=== PATIENT | female | born 1955 | race Caucasian/White ===

== ENCOUNTER → 2019-04-27 | Outpatient (CLI) | payer OTHER ==
--- NOTE | 2019-04-27 10:34 | XR ---
EXAMINATION TYPE: XR cervical spine limited DATE OF EXAM: 04/27/2019 COMPARISON: NONE HISTORY: Pain TECHNIQUE: Four views are submitted. FINDINGS: The odontoid is intact. There are no compression deformities. The prevertebral soft tissue structur es are within normal limits. Severe degenerative disc disease C4-5 and C5-C6 with moderate changes C 3-4 and C6-C7. Posterior spondylosis at levels C4-C7. Loss the normal cervical lordosis. IMPRESSION: 1. Multilevel severe degenerative disc disease. Recommend follow-up MRI. Suspect posterior spondylosi s with foraminal encroachment and possible canal stenosis.
== END | disposition home or self-care (01) ==
LOC: RADXRMAIN 10:05
PROVIDERS: ATTEND Family Medicine
DX: M50.31 Other cervical disc degeneration, high cervical region (principal)
CPT/HCPCS: 72040

== ENCOUNTER → 2019-05-31 | Outpatient (CLI) | payer OTHER ==
--- NOTE | 2019-06-01 03:19 | MR ---
EXAMINATION TYPE: MR cervical spine wo/w con DATE OF EXAM: 05/31/2019 COMPARISON: None HISTORY: Radiculopathy, cervical region TECHNIQUE: Multiplanar, multisequence images of the cervical spine were acquired utilizing 8.5 mL intravenous Ga davist gadolinium contrast. Diffusion weighted imaging was performed. There is mild straightening of the cervical spine. There is degenerative disc space narrowing at C4-5 C5-6. There is spurring of the endplates. There is a moderate-sized posterior C5-6 cervical disc her niation into the spinal canal. The spinal canal is narrowed to 5 mm. There is some effacement of the cervical spinal cord and flattening. This is best seen on T2 axial image 21. There is uncovertebral s purring and neural foraminal impingement on the left side at C5-6. There is no significant edema seen in the cervical spinal cord on the T2 images. There is no compression fracture. Brainstem is intact. There is some mild left side effacement of the cervical spinal cord at C4-5 due to spur formation an d disc bulging. Posterior elements are intact. I see no focal bone destruction. There is no pathologic enhancement. IMPRESSION: There is posterior central C5-6 cervical disc herniation with 5 mm spinal stenosis and deformity of t he cervical spinal cord. There is similar less severe changes at C4-5 on the left side. No fracture. Left side C4-5 C5-6 neural foraminal impingement.
== END | disposition home or self-care (01) ==
LOC: RADMRIMAIN 13:33
PROVIDERS: ATTEND Family Medicine
DX: M48.02 Spinal stenosis, cervical region (principal); M50.122 Cervical disc disorder at C5-C6 level with radiculopathy; M43.8X2 Other specified deforming dorsopathies, cervical region
CPT/HCPCS: 72156; A9585

== ENCOUNTER 2019-08-21 14:31 | Emergency (ER) | payer OTHER, MEDICARE ==
[2019-08-21] MEDS ORDERED: ONDANSETRON 4 MG/2 ML VIAL IVP STA (15:07)
[2019-08-21] MEDS ORDERED: SODIUM CHLORIDE 0.9% 1,000 ML IV STA (15:07)
[2019-08-21] MEDS ORDERED: PANTOPRAZOLE 40 MG/10 ML VIAL IVP STA (15:07)
[2019-08-21] MEDS ORDERED: DICYCLOMINE 10 MG/ML 2 ML AMP IM STA (15:07)
--- NOTE | 2019-08-21 15:11 | ED ---
Abdominal Pain HPI - General Chief Complaint: Abdominal Pain Stated Complaint: Abd pain Time Seen by Provider: 08/21/19 14:53 Source: patient Mode of arrival: ambulatory Limitations: no limitations - History of Present Illness Initial Comments: Patient is 64-year-old female with history of intestinal obstruction is presenting to emergency Department with a chief complaint of abdominal pain. Patient reports her symptoms began 3 days ago with diarrhea which has resolved since. Patient reports intermittent nausea but no vomiting. Patient reports she has not had a bowel movement since . Patient reports abdominal pain is mostly located in the umbilical region and radiates to each abdominal quadrant. Patient reports abdominal surgery 9 years ago for removal of a section of the small intestine, she also had cholecystectomy. Patient reports decreased appetite over the last 3 days, as report chills and night sweats but denies a fever. Patient denies taking medication to alleviate the symptoms. Patient denies any chest pain back pain shortness of breath headaches or blurry vision. Patient denies any urinary symptoms, vaginal discharge or bleeding. Patient denies hematuria, hematochezia or melena. - Related Data Previous Rx's Medication Instructions Recorded Magnesium Hydroxide [Milk of 400 mg PO ONCE PRN #1 bottle 08/21/19 Magnesia] Ondansetron Odt [Zofran Odt] 4 mg PO Q8HR PRN #10 tab 08/21/19 Allergies Allergy/AdvReac Type Severity Reaction Status Date / Time Sulfa (Sulfonamide Allergy Rash/Hives Verified 08/21/19 14:50 Antibiotics) Review of Systems ROS Statement: Those systems with pertinent positive or pertinent negative responses have been documented in the HPI. ROS Other: All systems not noted in ROS Statement are negative. Past Medical History Past Medical History: Hyperlipidemia, Thyroid Disorder History of Any Multi-Drug Resistant Organisms: None Reported Past Surgical History: Hysterectomy, Orthopedic Surgery Additional Past Surgical History / Comment(s): Parts of colon removed Past Psychological History: No Psychological Hx Reported Smoking Status: Former smoker Past Alcohol Use History: None Reported Past Drug Use History: None Reported General Exam Limitations: no limitations General appearance: alert, in no apparent distress Head exam: Present: atraumatic, normocephalic, normal inspection Eye exam: Present: normal appearance, PERRL, EOMI Pupils: Present: normal accommodation ENT exam: Present: normal exam, mucous membranes moist, normal external ear exam Neck exam: Present: normal inspection, full ROM Respiratory exam: Present: normal lung sounds bilaterally Cardiovascular Exam: Present: regular rate, normal rhythm, normal heart sounds GI/Abdominal exam: Present: soft, tenderness (Umbilical tenderness. Positive McBurney point tenderness negative Rovsing, negative Kernig, negative psoas), normal bowel sounds. Absent: distended, guarding, rebound, rigid, organomegaly, mass, bruit, pulsatile mass, hernia Extremities exam: Present: normal inspection, full ROM Back exam: Present: normal inspection, full ROM Neurological exam: Present: alert, oriented X3 Psychiatric exam: Present: normal affect, normal mood Skin exam: Present: warm, intact, normal color Course Vital Signs 08/21/19 08/21/19 08/21/19 14:48 15:41 16:14 Temperature 98.4 F 97.8 F Pulse Rate 92 68 Respiratory 16 18 18 Rate Blood Pressure 127/85 121/83 O2 Sat by Pulse 95 94 L Oximetry 08/21/19 18:35 Temperature Pulse Rate Respiratory 20 Rate Blood Pressure 107/80 O2 Sat by Pulse Oximetry Medical Decision Making - Medical Decision Making is 64-year-old female presenting to emergency Department with a chief complaint of abdominal pain. The pain appears to have an onset after the patient had diarrhea and no bowel movement since which occurred about 3 days ago. CBC and CMP are unremarkable. UA is indicative of mild elevation of white blood cells with some bacteria. Patient is not symptomatically for a UTI so she is not going to be treated. KUB is unremarkable. Patient was given fluids Bentyl Toradol and Zofran. CT of abdomen and pelvis performed is indicative of no acute pathologies. On reevaluation patient reports improvement in her symptoms. Patient advised to follow-up with a GI specialist. Patient discharged with Zofran. Advised the patient to take a stool softener and milk of magnesia to promote bowel movements. Strict return parameters were thoroughly discussed with patient was understanding and agreeable. Case discussed physician. - Lab Data Result diagrams: 08/21/19 15:15 08/21/19 15:15 Lab Results 08/21/19 08/21/19 08/21/19 Range/Units 15:15 15:15 16:01 WBC 7.8 (3.8-10.6) k/uL RBC 4.31 (3.80-5.40) m/uL Hgb 13.2 (11.4-16.0) gm/dL Hct 38.3 (34.0-46.0) % MCV 88.8 (80.0-100.0) fL MCH 30.6 (25.0-35.0) pg MCHC 34.5 (31.0-37.0) g/dL RDW 13.3 (11.5-15.5) % Plt Count 311 (150-450) k/uL Neutrophils % 70 % Lymphocytes % 20 % Monocytes % 5 % Eosinophils % 2 % Basophils % 1 % Neutrophils # 5.5 (1.3-7.7) k/uL Lymphocytes # 1.6 (1.0-4.8) k/uL Monocytes # 0.4 (0-1.0) k/uL Eosinophils # 0.1 (0-0.7) k/uL Basophils # 0.1 (0-0.2) k/uL Sodium 140 (137-145) mmol/L Potassium 4.0 (3.5-5.1) mmol/L Chloride 105 (98-107) mmol/L Carbon Dioxide 26 (22-30) mmol/L Anion Gap 9 mmol/L BUN 21 H (7-17) mg/dL Creatinine 0.77 (0.52-1.04) mg/dL Est GFR (CKD-EPI)AfAm >90 (>60 ml/min/1.73 sqM) Est GFR (CKD-EPI)NonAf 82 (>60 ml/min/1.73 sqM) Glucose 101 H (74-99) mg/dL Calcium 9.0 (8.4-10.2) mg/dL Total Bilirubin 0.4 (0.2-1.3) mg/dL AST 22 (14-36) U/L ALT 16 (9-52) U/L Alkaline Phosphatase 68 (38-126) U/L Total Protein 7.3 (6.3-8.2) g/dL Albumin 4.2 (3.5-5.0) g/dL Amylase 49 (30-110) U/L Lipase 128 (23-300) U/L Urine Color Yellow Urine Appearance Clear (Clear) Urine pH 5.5 (5.0-8.0) Ur Specific Mellette 1.021 (1.001-1.035) Urine Protein Negative (Negative) Urine Glucose (UA) Negative (Negative) Urine Ketones Negative (Negative) Urine Blood Negative (Negative) Urine Nitrite Negative (Negative) Urine Bilirubin Negative (Negative) Urine Urobilinogen 2.0 (<2.0) mg/dL Ur Leukocyte Esterase Large H (Negative) Urine RBC 3 (0-5) /hpf Urine WBC 25 H (0-5) /hpf Ur Squamous Epith Cells 1 (0-4) /hpf Urine Bacteria Rare H (None) /hpf Urine Mucus Occasional H (None) /hpf Disposition Clinical Impression: Nausea, Constipation, Abdominal pain Disposition: HOME SELF-CARE Condition: Stable Instructions (If sedation given, give patient instructions): Abdominal Pain (ED) Additional Instructions: Please follow up with a GI specialist. Please take prescribed medication as directed. Please return to emergency department if symptoms worsen. Prescriptions: Magnesium Hydroxide [Milk of Magnesia] 400 mg PO ONCE PRN #1 bottle PRN Reason: Constipation Ondansetron Odt [Zofran Odt] 4 mg PO Q8HR PRN #10 tab PRN Reason: Nausea Is patient prescribed a controlled substance at d/c from ED?: No Referrals: Sai Garvey MD [Primary Care Provider] - 1-2 days Richard Brown MD [STAFF PHYSICIAN] - 1-2 days Time of Disposition: 18:03
[2019-08-21 15:26] LABS: Basophils # (A) 0.1 k/uL (0-0.2); Basophils % (A) 1 %; Eosinophils # (A) 0.1 k/uL (0-0.7); Eosinophils % (A) 2 %; HCT 38.3 % (34.0-46.0); HGB 13.2 gm/dL (11.4-16.0); Lymphocytes # (A) 1.6 k/uL (1.0-4.8); Lymphocytes % (A) 20 %; MCH 30.6 pg (25.0-35.0); MCHC 34.5 g/dL (31.0-37.0); MCV 88.8 fL (80.0-100.0); Mean Platelet Volume 6.7; Monocytes # (A) 0.4 k/uL (0-1.0); Monocytes % (A) 5 %; Neutrophils # (A) 5.5 k/uL (1.3-7.7); Neutrophils % (A) 70 %; Platelet Count 311 k/uL (150-450); RBC 4.31 m/uL (3.80-5.40); RDW 13.3 % (11.5-15.5); WBC 7.8 k/uL (3.8-10.6)
[2019-08-21 15:34] LABS: ALT 16 U/L (9-52); AST 22 U/L (14-36); African American GFR (CKD) >90 (>60 ml/min/1.73 sqM); Albumin 4.2 g/dL (3.5-5.0); Alkaline Phosphatase 68 U/L (38-126); Amylase 49 U/L (30-110); Anion Gap 9 mmol/L; Blood Urea Nitrogen 21 mg/dL (7-17); Carbon Dioxide 26 mmol/L (22-30); Chloride 105 mmol/L (98-107); Glucose 101 mg/dL (74-99); Sodium 140 mmol/L (137-145); Total Bilirubin 0.4 mg/dL (0.2-1.3); Total Protein 7.3 g/dL (6.3-8.2)
[2019-08-21 15:45] VITALS: PULSE 68; TEMP 97.8
--- NOTE | 2019-08-21 16:03 | XR ---
EXAMINATION TYPE: XR KUB DATE OF EXAM: 08/21/2019 COMPARISON: NONE HISTORY: Abdominal pain TECHNIQUE: 2 views upright FINDINGS: There is no sign of intestinal obstruction or pneumoperitoneum. Fecal pattern is normal. Th ere are clips from cholecystectomy. There is mild pleural reaction at the lung bases more on the left side. IMPRESSION: Mild basilar pleural reaction. Nonacute abdomen.
[2019-08-21 16:23] LABS: Appearance,Urine Clear (Clear); Bacteria,Urine Rare /hpf; Bilirubin,Urine Negative (Negative); Blood,Urine Negative (Negative); Color,Urine Yellow; Glucose,Urine (UA) Negative (Negative); Ketones,Urine Negative (Negative); Leukocyte Esterase,Urine Large (Negative); Mucus,Urine Occasional /hpf; Nitrite,Urine Negative (Negative); PH, Urine 5.5 (5.0-8.0); Protein,Urine Negative (Negative); RBC,Urine 3 /hpf (0-5); Specific Gravity,Urine 1.021 (1.001-1.035); Squamous Epithelial Cell,Urine 1 /hpf (0-4); WBC,Urine 25 /hpf (0-5)
--- NOTE | 2019-08-21 17:13 | CT ---
EXAMINATION TYPE: CT abdomen pelvis w con DATE OF EXAM: 08/21/2019 COMPARISON: None HISTORY: Abdominal pain x3 days. CT DLP: 1389.1 mGycm Automated exposure control for dose reduction was used. TECHNIQUE: Helical acquisition of images was performed from the lung bases through the pelvis. CONTRAST: Performed without Oral Contrast and with IV Contrast, patient injected with 100ml mL of Isovue 300. FINDINGS: There is mild subsegmental atelectasis at the lung bases. Heart size is normal. There is no pericardi al effusion. There is no pleural fluid. There clips from cholecystectomy. Liver spleen pancreas appear normal. Bile ducts are not dilated. St omach is intact. There is no adrenal mass. Kidneys show satisfactory contrast opacification. There is no hydronephrosi s. There is surgery with anastomosis apparently in the anterior mid small bowel. There is no retroperitoneal adenopathy. Ureters are not dilated. Bladder distends smoothly. There are small renal cortical cysts less than 1 cm. There is no inguinal hernia. There is no free fluid in th e pelvis. Appendix is posterior and appears normal. Lumbar vertebra have normal alignment. Disc spaces are fairly normal. Posterior elements are intact. Bony pelvis appears intact. IMPRESSION: PREVIOUS BOWEL SURGERY. NO SIGN OF ACUTE ABDOMEN AND PELVIS. MILD SUBSEGMENTAL ATELECTASIS AT THE DAVE G BASES. NORMAL APPENDIX.
[2019-08-21] MEDS ORDERED: Acetaminophen-Codeine 300-30mg TAB PO STA (17:26)
[2019-08-21] MEDS ORDERED: ACET/COD 300 MG/30 MG STARTER PACK 6 TAB BTL PO STA (18:30)
[2019-08-21 18:36] VITALS: BP 107/80; RESP 20
== END 2019-08-21 19:08 | disposition home or self-care (01) ==
LOC: EC 14:31
DX: K59.00 Constipation, unspecified (principal); R11.0 Nausea; R82.71 Bacteriuria; R82.998 Other abnormal findings in urine; R68.83 Chills (without fever); R61 Generalized hyperhidrosis; Z87.891 Personal history of nicotine dependence; Z88.2 Allergy status to sulfonamides; Z90.49 Acquired absence of other specified parts of digestive tract
CPT/HCPCS: 36415; 80053; 82150; 83690; 85025; 81001; 74018; 74177; 99284; 96374; 96375; 96361; 96372; J0500; J2405; C9113; Q9967

== ENCOUNTER 2020-01-02 15:05 | Observation (INO) | payer MEDICARE, OTHER ==
[2020-01-02] MEDS ORDERED: HYDROcodone/APAP 5-325MG 1 EACH TAB PO PRN (17:55)
[2020-01-02] MEDS: HYDROcodone/APAP 5-325MG 1 EACH TAB PO PRN ×2 (18:21→22:41)
[2020-01-02] MEDS: SODIUM CHLORIDE 0.9% 1,000 ML IV SCH (19:01)
[2020-01-02 19:28] LABS: Basophils % (A) 0 %; Eosinophils % (A) 0 %; HGB 12.3 gm/dL (11.4-16.0); Lymphocytes # (A) 0.8 k/uL (1.0-4.8); Lymphocytes % (A) 11 %; MCH 30.4 pg (25.0-35.0); MCHC 33.3 g/dL (31.0-37.0); MCV 91.2 fL (80.0-100.0); Mean Platelet Volume 8.1; Monocytes # (A) 0.3 k/uL (0-1.0); Monocytes % (A) 4 %; Neutrophils # (A) 6.5 k/uL (1.3-7.7); Neutrophils % (A) 84 %; Platelet Count 267 k/uL (150-450); RBC 4.06 m/uL (3.80-5.40); RDW 13.5 % (11.5-15.5); WBC 7.7 k/uL (3.8-10.6)
[2020-01-02 19:38] LABS: African American GFR (CKD) >90 (>60 ml/min/1.73 sqM); Anion Gap 5 mmol/L; Blood Urea Nitrogen 13 mg/dL (7-17); Calcium 8.7 mg/dL (8.4-10.2); Carbon Dioxide 28 mmol/L (22-30); Chloride 106 mmol/L (98-107); Glucose 128 mg/dL (74-99); Non-African American GFR(CKD) >90 (>60 ml/min/1.73 sqM); Potassium 4.2 mmol/L (3.5-5.1); Sodium 139 mmol/L (137-145)
[2020-01-02 20:34] LABS: Glucose,Whole Blood 109 mg/dL (75-99)
[2020-01-02] MEDS: INSULIN ASPART (NovoLOG) 100 UNIT/ML VIAL SQ SCH (20:37)
--- NOTE | 2020-01-02 22:31 | MR ---
EXAMINATION TYPE: MR shoulder RT wo/w con DATE OF EXAM: 01/02/2020 COMPARISON: None HISTORY: Severe rt shouler/arm pain CONTRAST: Standard multiplanar, multisequence MRI departmental protocol utilizing 7.5 mL intravenous Gadavist g adolinium contrast. Subscapularis tendon is intact. Biceps tendon is intact. The glenoid saira appear intact. There is so me spurring at the AC joint and mild subacromial impingement on the supraspinatus tendon. The suprasp inatus tendon appears intact. I see no bony destructive process. The glenohumeral joint appears intac t. IMPRESSION: No evidence of rotator cuff tear. No fracture. No evidence of ligamentous tear. Hypertrophic spurring at the AC joint with mild subacromial impingement.
[2020-01-02] MEDS: SERTRALINE 100 MG TAB PO SCH (22:41)
[2020-01-02] MEDS: ZOLPIDEM 10 MG TAB PO PRN (22:43)
--- NOTE | 2020-01-02 23:14 | MR ---
EXAMINATION TYPE: MR cervical spine wo/w con DATE OF EXAM: 01/02/2020 COMPARISON: 05/31/2019 HISTORY: Neck pain, rt shoulder pain CONTRAST: Standard multiplanar, multisequence MRI departmental protocol utilizing 7.5 mL intravenous Gadavist g adolinium contrast. There is mild straightening of the cervical spine. There is disc space narrowing throughout the cervi chris spine and more severe at C4-5 C5-6. There are posterior disc herniations at C4-5 C5-6 with endpla te spur formation. Spinal canal is narrowed to 5 mm at C5-6. Spinal canal is 6 mm at C4-5. There is s light flattening of the cervical spinal cord at C5-6. There is impingement on the anterior surface on the left side at C5-6. There is similar change less severe at C4-5. Cervical spinal cord shows no edema. The brainstem is intact. There is no compression fracture. IMPRESSION: Spondylotic changes at C4-5 and C5-6. Posterior disc herniations larger at C5-6 with spinal stenosis as above. Disc herniation at C5-6 is increased slightly compared to old exam.
[2020-01-02] MEDS: methylPREDNISolone SOD SUCCI 125 MG/2 ML VIAL IV SCH (23:30)
[2020-01-03] MEDS: HYDROcodone/APAP 5-325MG 1 EACH TAB PO PRN ×5 (03:21→22:06)
[2020-01-03] MEDS: LEVOTHYROXINE 100 MCG TAB PO SCH (05:28)
[2020-01-03 07:19] LABS: Glucose,Whole Blood 145 mg/dL (75-99)
[2020-01-03] MEDS: INSULIN ASPART (NovoLOG) 100 UNIT/ML VIAL SQ SCH ×4 (08:35→22:07)
[2020-01-03] MEDS: methylPREDNISolone SOD SUCCI 125 MG/2 ML VIAL IV SCH ×3 (08:35→23:27)
[2020-01-03] MEDS: SODIUM CHLORIDE 0.9% 1,000 ML IV SCH ×2 (10:00→22:05)
[2020-01-03 11:46] LABS: Glucose,Whole Blood 121 mg/dL (75-99)
[2020-01-03 13:02] LABS: Glucose,Whole Blood 119 mg/dL (75-99)
[2020-01-03] MEDS ORDERED: CYCLOBENZAPRINE 5 MG TAB PO PRN (14:21)
[2020-01-03] MEDS: DIAZEPAM 5 MG TAB PO PRN (17:02)
[2020-01-03 17:55] LABS: Glucose,Whole Blood 152 mg/dL (75-99)
[2020-01-03 20:33] LABS: Glucose,Whole Blood 170 mg/dL (75-99)
[2020-01-03 22:06] LABS: Glucose,Whole Blood 136 mg/dL (75-99)
[2020-01-03] MEDS: SERTRALINE 100 MG TAB PO SCH (22:07)
--- NOTE | 2020-01-03 22:45 | HP ---
HISTORY AND PHYSICAL This is a 64-year-old white female admitted with intractable pain syndrome with a right palsy of the arm, unable to move her arm. She was admitted with IV steroids and MRI of the shoulder and cervical spine were done with consultation for possible cervical epidural and with Dr. Salcedo for possible neck surgery. As mentioned, she has right arm palsy, intractable pain. HOME MEDICATION: Please see orders. Fourteen-point review of systems negative except for mentioned in HPI. Vital signs are stable. Afebrile. CARDIOVASCULAR: S1, S2. LUNGS: Clear. GI: Soft. HEMATOLOGY: Negative Homans. PSYCH: Fair mood and affect. NEUROLOGIC: Alert and oriented x3. MUSCULOSKELETAL: Palpation of cervicothoracic muscles with pain with right arm palsy in a sling. ASSESSMENT: 1. Acute cervical palsy. 2. Cervical neuritis. 3. Possible AC impingement. Continue the next 24 to 48 hours for possible cervical epidural. Set up for outpatient physical therapy and Dr. Salcedo consult prior to discharge. Continue with IV steroids. MMODL / IJN: [id number] /
[2020-01-03] MEDS: ZOLPIDEM 10 MG TAB PO PRN (23:05)
[2020-01-04] MEDS: DIAZEPAM 5 MG TAB PO PRN ×3 (01:08→17:24)
[2020-01-04 06:35] LABS: Glucose,Whole Blood 145 mg/dL (75-99)
[2020-01-04] MEDS: LEVOTHYROXINE 100 MCG TAB PO SCH (06:47)
[2020-01-04] MEDS: INSULIN ASPART (NovoLOG) 100 UNIT/ML VIAL SQ SCH ×4 (06:47→20:00)
[2020-01-04] MEDS: HYDROcodone/APAP 5-325MG 1 EACH TAB PO PRN ×4 (06:51→20:03)
[2020-01-04] MEDS: methylPREDNISolone SOD SUCCI 125 MG/2 ML VIAL IV SCH ×2 (09:00→17:24)
--- NOTE | 2020-01-04 11:24 | P.CNOR ---
<Hakeem Gill - Last Filed: 01/04/20 11:17> History of Present Illness - [facility] Consult date: 01/04/20 Requesting physician: Sai Garvey Consult reason: other (Right upper extremity radiculopathy and weakness) History of present illness: Patient is a pleasant 64-year-old female who is seen and examined at bedside for further evaluation regards to significant right upper extremity radiculopathy and weakness. Patient states her symptoms initially started in September 2019 with some numbness and tingling and pain into her right thumb, index finger, and middle finger. He was told she had carpal tunnel. She followed with Dr. Collin Godwin and underwent right carpal tunnel release. She states her symptoms have had significant improvement since that time. She is now experiencing new or symptoms that have been exacerbated since the previous 12/26/2019. She states she has pain that radiates over the right shoulder. She has significant pain with range of motion of the shoulder but also significant weakness with her right shoulder. She has numbness and tingling that radiates down the arm and now towards the right pinky and ring fingers. She has significant weakness overall in regards to her right upper extremity. She denies any specific injuries. She denies any left upper extremity radiculopathy or weakness. Consultation has been placed with pain management. She has not been examined by pain management yet this morning. She has been following with her primary care provider Dr. Sai Garvey who sent her to the hospital for admission and further imaging. MRI imaging of the cervical spine and right shoulder were performed prior to today's consultation. Imaging did show s ignificant changes at her cervical spine. Imaging did show some acromioclavicular changes at her right shoulder. Patient is currently on Solu- Medrol 60 mg IV every 8 hours. Patient's medical history includes hyperlipidemia and thyroid disorder. Past Medical History Past Medical History: Hyperlipidemia, Thyroid Disorder History of Any Multi-Drug Resistant Organisms: None Reported Past Surgical History: Hysterectomy, Orthopedic Surgery Additional Past Surgical History / Comment(s): Parts of colon removed Past Anesthesia/Blood Transfusion Reactions: No Reported Reaction Past Psychological History: No Psychological Hx Reported Smoking Status: Former smoker Past Alcohol Use History: None Reported Past Drug Use History: None Reported - Past Family History Mother Additional Family Medical History / Comment(s): still living in good health Medications and Allergies Home Medications Medication Instructions Recorded Confirmed Type Ondansetron Odt [Zofran Odt] 4 mg PO Q8HR PRN #10 tab 08/21/19 01/02/20 Rx Diazepam [Valium] 5 mg PO Q8H PRN 01/02/20 01/02/20 History Gabapentin [Neurontin] 100 mg PO BID 01/02/20 01/02/20 History Ibuprofen [Motrin] 600 mg PO BID PRN 01/02/20 01/02/20 History Levothyroxine Sodium [Synthroid] 100 mcg PO DAILY 01/02/20 01/02/20 History Naproxen 500 mg PO BID 01/02/20 01/02/20 History Pantoprazole Sodium [Protonix] 40 mg PO DAILY PRN 01/02/20 01/02/20 History Sertraline [Zoloft] 100 mg PO HS 01/02/20 01/02/20 History Zolpidem [Ambien] 10 mg PO HS 01/02/20 01/02/20 History methylPREDNISolone [Medrol] 8 mg PO DAILY 01/02/20 01/02/20 History Allergies Allergy/AdvReac Type Severity Reaction Status Date / Time Sulfa (Sulfonamide Allergy Rash/Hives Verified 01/02/20 18:35 Antibiotics) Physical Examination Physical exam: Patient is awake, alert, and oriented 3 Vital signs stable Good chest excursion with deep inspiration and expiration Examination of the cervical spine reveals skin is intact with no abrasions, lacerations, or bruises; no erythema, purulence or signs of infection Full range of motion of the cervical spine with adequate flexion, extension, and bilateral rotation [employer] strength, thumb strength, interosseous strength, biceps strength, triceps strength, and shoulder strength positive sustained on the left Significant weakness throughout range of motion of the right upper extremity Patient is unable to perform full abduction of the right shoulder Pain with active range of motion of the right shoulder Motor strength in the right upper extremity is 3/5 including thumb extension, interossi, and hemodialysis rn Motor strength of the right upper extremity is 4/5 including the triceps Motor strength the right upper extremity is 4-/5 with breakaway strength including biceps Evidence of a well-healed incision at the right wrist following previous carpal tunnel release No upper extremity hyperreflexia bilaterally Positive Leeanna's sign left upper extremity Results Pertinent studies: MRI of the cervical spine taken on 01/02/2020: C4-5 degenerative disc disease and disc herniation resulting in central canal stenosis and left neural foraminal stenosis; C5-6 degenerative disc disease and large disc herniation resulting in central canal stenosis and left neural foraminal stenosis; C6-7 disc bulging with cord flattening MRI of the right shoulder taken on 01/02/2020: No evidence of rotator cuff tear; no fracture; no evidence of ligamentous tear; evidence of hypertrophic spurring at the acromioclavicular joint with mild subacromial impingement; biceps tendon is intact; no evidence of destructive process - Labs Labs: Abnormal Lab Results - Last 24 Hours (Table) 01/03/20 01/03/20 01/03/20 Range/Units 11:37 12:53 17:53 POC Glucose (mg/dL) 121 H 119 H 152 H (75-99) mg/dL 01/03/20 01/03/20 01/04/20 Range/Units 20:25 22:04 06:33 POC Glucose (mg/dL) 170 H 136 H 145 H (75-99) mg/dL H & H 01/02/20 Range/Units 19:04 Hgb 12.3 (11.4-16.0) gm/dL Hct 37.0 (34.0-46.0) % Result Diagrams: 01/02/20 19:04 01/02/20 19:04 Assessment and Plan Assessment: Assessment: Acute right upper extremity weakness Acute right upper extremity radiculopathy C4-5 herniated nucleus pulposus and degenerative disc disease resulting in central canal stenosis and left neural foraminal stenosis C5-6 herniated nucleus pulposus and degenerative disc disease resulting in central canal stenosis with cord compression and left neural foraminal stenosis Right acromioclavicular hypertrophic spurring History of right recent carpal tunnel release (1) Right arm weakness Current Visit: Yes Status: Acute Code(s): R29.898 - OTH SYMPTOMS AND SIGNS INVOLVING THE MUSCULOSKELETAL SYSTEM SNOMED Code(s): 032556241 (2) Radiculopathy affecting upper extremity Current Visit: Yes Status: Acute Code(s): M54.10 - RADICULOPATHY, SITE UNSPECIFIED SNOMED Code(s): 08425803 (3) Cervical stenosis of spinal canal Current Visit: Yes Status: Acute Code(s): M48.02 - SPINAL STENOSIS, CERVICAL REGION SNOMED Code(s): 73305629 (4) Herniated nucleus pulposus, cervical Current Visit: Yes Status: Acute Code(s): M50.20 - OTHER CERVICAL DISC DISPLACEMENT, UNSP CERVICAL REGION SNOMED Code(s): 40475656 (5) Acromioclavicular joint arthritis Current Visit: Yes Status: Acute Code(s): M19.019 - PRIMARY OSTEOARTHRITIS, UNSPECIFIED SHOULDER SNOMED Code(s): 188553629 (6) History of carpal tunnel release Current Visit: Yes Status: Acute Code(s): Z98.890 - OTHER SPECIFIED POSTPROCEDURAL STATES SNOMED Code(s): 838910786 (7) Right shoulder pain Current Visit: Yes Status: Acute Code(s): M25.511 - PAIN IN RIGHT SHOULDER SNOMED Code(s): 54563080 (8) Hyperlipidemia Current Visit: Yes Status: Acute Code(s): E78.5 - HYPERLIPIDEMIA, UNSPECIFIED SNOMED Code(s): 64510579 (9) Thyroid disorder Current Visit: Yes Status: Acute Code(s): E07.9 - DISORDER OF THYROID, UNSPECIFIED SNOMED Code(s): 79762663 Plan: Plan: 1. Patient has been seen by Dr. Pepito Salcedo and myself. After reviewing of imaging, physical examination the patient, and further discussion with the patient, we will currently plan to continue with conservative treatment. Patient has consultation placed with pain management. We discussed we will plan to have pain management consult with the patient and discuss further treatment options including the possibility of injections. We discussed if the patient is able to be stable with her pain controlled, she be cleared for discharge home from an orthopedic spine standpoint. We did discuss her significant findings on MRI imaging as well as her significant weakness in right upper extremity radiculopathy. We discussed if her symptoms are not well-controlled and do not improve with conservative treatment, she is a candidate for surgical intervention. At this time, patient would like to try to work through conservative treatment options and have further evaluation in the outpatient setting. Due to the recent alexis virus outbreak, patient like to avoid long- term admittance to the hospital. We discussed we'll plan to have her follow-up in the outpatient setting in approximately 2 weeks for further evaluation. Following discharge, patient may follow-up with Hakeem Gill PA-C or Dr. Pepito Salcedo at [facility] 2. Patient should avoid excessive activities and heavy lifting with the right upper extremity. 3. Continue pain control medications as prescribed; continue with Solu-Medrol as prescribed as needed for pain control Time with Patient: Greater than 30 (Including obtaining history, physical examination, reviewing of imaging, and dictation.) <Emilie Salcedo - Last Filed: 01/04/20 11:47> Physical Examination Osteopathic Statement: *. No significant issues noted on an osteopathic structural exam other than those noted in the History and Physical/Consult. Results - Labs Labs: Abnormal Lab Results - Last 24 Hours (Table) 01/03/20 01/03/20 01/03/20 Range/Units 11:37 12:53 17:53 POC Glucose (mg/dL) 121 H 119 H 152 H (75-99) mg/dL 01/03/20 01/03/20 01/04/20 Range/Units 20:25 22:04 06:33 POC Glucose (mg/dL) 170 H 136 H 145 H (75-99) mg/dL H & H 01/02/20 Range/Units 19:04 Hgb 12.3 (11.4-16.0) gm/dL Hct 37.0 (34.0-46.0) % Result Diagrams: 01/02/20 19:04 01/02/20 19:04 Assessment and Plan Plan: The patient is seen and examined today at bedside. I also reviewed her MRI of her cervical spine. I reviewed the dictation above and I am in agreement with the dictation above. Patient is using her arm somewhat better today. She thinks that the steroid may have helped somewhat in terms of her motion. She still has pain at her right upper extremity toward her shoulder and down her right arm with some weakness globally at her right arm. Portion of her weakness is due to pain and breakaway strength however there does seem to be some strength loss as well. She is not hyperreflexic. She has negative Leeanna's. She does not have specific upper motor neuron signs at this point. At this time I think is still located continue to try conservative treatment with medication. Currently pain management service is limiting there procedures and they plan on performing epidural injections during this hospitalization for this patient. This may be an option for her on an outpatient basis. I would like to see how she does with continued oral steroid after the IV steroid continues for 1 more night. I like to see if she has any improvement with Neurontin and we will order that for her. She does have significant disc herniation with evidence of stenosis which corre lates with her neck and upper extremity symptoms. She is a candidate for surgical intervention in the form of anterior cervical decompression with discectomy and fusion. Certainly we would like to see if she has some improvement with conservative treatment before entertaining surgical intervention and I discussed this with her at length. I think it is okay for her to be discharged home from a orthopedic spine standpoint and to continue her follow-up on an outpatient basis when she is stable with oral medications. She thinks she may be able to be home tomorrow with oral steroid if she continues to improve and she has overnight.
[2020-01-04] MEDS: SODIUM CHLORIDE 0.9% 1,000 ML IV SCH ×2 (11:42→20:00)
[2020-01-04 12:19] LABS: Glucose,Whole Blood 162 mg/dL (75-99)
[2020-01-04] MEDS: GABAPENTIN 300 MG CAP PO SCH ×2 (12:41→20:00)
--- NOTE | 2020-01-04 15:44 | P.PN ---
Subjective Progress Note Date: 01/04/20 This is a 64-year-old admitted with cervical neuritis/cervical pain/acute right upper extremity weakness with radiculopathy, possible ac joint impingement and multiple other medical issues. Evaluated by orthopedic surgery .orthopedic review of radiology films :MRI of the cervical spine reported C4-5 degenerative disc disease and disc herniation resulting in central canal stenosis and left neural foraminal stenosis; C5-6 degenerative disc disease and large disc herniation resulting in central canal stenosis and left neural foraminal stenosis; C6-7 disc bulging with cord flattening.MRI of the right shoulder reported No evidence of rotator cuff tear; no fracture; no evidence of ligamentous tear; evidence of hypertrophic spurring at the acromioclavicular fiona nt with mild subacromial impingement; biceps tendon is intact; no evidence of destructive process. Maintained on IV steroids with Improvement in both pain and mobility. Blood sugars controlled. Pain management initially consulted, services currently unavailable. Denies chest pain, palpitations or shortness of breath. Denies lightheadedness, dizziness or focal deficits. Objective - Vital Signs Vital signs: Vital Signs Temp 97.7 F 01/04/20 08:38 Pulse 75 01/04/20 08:38 Resp 18 01/04/20 08:38 BP 127/82 01/04/20 08:38 Pulse Ox 95 01/04/20 08:38 Intake & Output 01/03/20 01/04/20 01/04/20 18:59 06:59 18:59 Intake Total 1160 Balance 1160 Intake: Oral 1160 Other: Voiding Method Toilet # Voids 1 3 - Exam PHYSICAL EXAM: VITAL SIGNS: As above GENERAL: Sitting up in bed, no acute distress HEENT: Conjunctivae normal. eyes normal. NECK: No JVD. No thyroid enlargement. No LNs CARDIOVASCULAR: S1, S2 regular.. No murmur RESPIRATION: Breath sounds diminished in the bases. No rhonchi or crackles. No bronchial breathing. ABDOMEN: Soft, nontender . No guarding. no masses palpable. No ascites, No hepatosplenomegaly.Bowel sounds heard. LEGS: No edema. no swelling PSYCHIATRY: Alert and oriented X3, mood and affect normal. NERVOUS SYSTEM: Alert and oriented 3, right upper extremity significant weakness with limited right shoulder abduction. Positive cervical thoracic muscle pain. Skin: no rash - Labs CBC & Chem 7: 03/16/20 19:04 01/02/20 19:04 Labs: Abnormal Lab Results - Last 24 Hours (Table) 01/03/20 01/03/20 01/03/20 Range/Units 17:53 20:25 22:04 POC Glucose (mg/dL) 152 H 170 H 136 H (75-99) mg/dL 01/04/20 01/04/20 Range/Units 06:33 12:18 POC Glucose (mg/dL) 145 H 162 H (75-99) mg/dL Assessment and Plan Assessment: Acute intractable pain with cervical neuritis with possible AC impingement. Acute right upper extremity radiculopathy with right arm weakness, right shoulder pain Spinal canal cervical stenosis, acute AC joint arthritis Posterior disc herniation C4- 5, larger at C5 -6 with spinal stenosis Hypothyroidism Hyperlipidemia History of carpal tunnel release Former nicotine dependence Plan: Continue on current medication regime ,monitoring and symptomatic treatment. No pain management servicesno inpatient cervical epidural. As mentioned above maintain IV steroids for another 24 hours as per orthopedic surgery with discharge planning in progress for tomorrow on oral steroids. Follow closely with orthopedic surgery. The impression and plan of care has been dictated as directed. : I performed a history and examination of this patient, discussed the same with the dictator. I agree with the dictator's note ,documented as a scribe. Any additional findings or plans will be noted.
[2020-01-04 16:53] LABS: Glucose,Whole Blood 120 mg/dL (75-99)
[2020-01-04 19:52] LABS: Glucose,Whole Blood 218 mg/dL (75-99)
[2020-01-04 19:56] VITALS: RESP 18
[2020-01-04] MEDS: SERTRALINE 100 MG TAB PO SCH (20:00)
[2020-01-04] MEDS: ZOLPIDEM 10 MG TAB PO PRN (21:31)
[2020-01-05] MEDS: methylPREDNISolone SOD SUCCI 125 MG/2 ML VIAL IV SCH ×2 (00:45→08:20)
[2020-01-05 03:00] VITALS: TEMP 97.9
[2020-01-05] MEDS: DIAZEPAM 5 MG TAB PO PRN ×2 (04:16→12:30)
[2020-01-05 06:37] LABS: Glucose,Whole Blood 120 mg/dL (75-99)
[2020-01-05] MEDS: INSULIN ASPART (NovoLOG) 100 UNIT/ML VIAL SQ SCH ×2 (06:41→12:21)
[2020-01-05] MEDS: HYDROcodone/APAP 5-325MG 1 EACH TAB PO PRN ×2 (06:44→10:44)
[2020-01-05] MEDS: LEVOTHYROXINE 100 MCG TAB PO SCH (06:44)
[2020-01-05] MEDS: GABAPENTIN 300 MG CAP PO SCH (08:20)
[2020-01-05 08:27] VITALS: BP 127/73; PULSE 81
--- NOTE | 2020-01-05 09:23 | P.PN ---
Progress Note - Text Progress Note Date: 01/05/20 The patient is seen and examined today at bedside. She feels that her upper extremities doing better. She has more motion in her arm today. Her pain is a bit less today as well. She has been up and around in her room. She is ambulating well. She feels her medications are working. At her right upper extremity she is able to lift it to about 50 at her shoulder. She is moving her elbow and wrist and hand better today. Herniated nucleus pulposis C5 6 C6 7 with right upper extremity radiculopathy. The patient is making some benefit with conservative treatment. She has made progress in terms of her strength and motion and pain. I think it is okay to continue with conservative treatment at this point. As stated previously she is unable to get a epidural injection with the current guidelines surrounding the hospital situation. She understands this. She is stable to go home with oral medications. We will convert her over to oral steroid. We will also add a GI medication for prophylaxis while she is on her steroids. I would like to see her back in the office in approximately 2 or 3 weeks for recheck evaluation if we are able to proceed with clinical visits. Otherwise we can potentially arrange telemedicine conferencing if necessary.
--- NOTE | 2020-01-05 10:13 | P.DS ---
Providers Date of admission: 01/02/20 16:52 Expected date of discharge: 01/05/20 Attending physician: Sai Garvey Consults: 01/03/20 12:34 Consult Physician Routine Consulting Provider: Emilie Salcedo Consult Reason/Comments: cervical disc herniation Do you want consulting provider notified?: Yes 01/03/20 12:35 Consult Physician Routine Consulting Provider: Anesthesia,Services Consult Reason/Comments: epidural cervical Do you want consulting provider notified?: Yes Primary care physician: Sai Garvey Hospital Course: Final Diagnoses Acute intractable pain with cervical neuritis with possible AC impingement. Acute right upper extremity radiculopathy with right arm weakness, right shoulder pain Spinal canal cervical stenosis, acute AC joint arthritis Posterior disc herniation C4- 5, larger at C5 -6 with spinal stenosis Hypothyroidism Hyperlipidemia History of carpal tunnel release Former nicotine dependence Hospital course:This is a 64-year-old admitted with cervical neuritis/cervical pain/acute right upper extremity weakness with radiculopathy, possible ac joint impingement and multiple other medical issues. Evaluated by orthopedic surgery .orthopedic review of radiology films :MRI of the cervical spine reported C4-5 degenerative disc disease and disc herniation resulting in central canal stenosis and left neural foraminal stenosis; C5-6 degenerative disc disease and large disc herniation resulting in central canal stenosis and left neural foraminal stenosis; C6-7 disc bulging with cord flattening.MRI of the right shoulder reported No evidence of rotator cuff tear; no fracture; no evidence of ligamentous tear; evidence of hypertrophic spurring at the acromioclavicular joint with mild subacromial impingement; biceps tendon is intact; no evidence of destructive process. Maintained on IV steroids with Improvement in both pain and mobility. Blood sugars controlled. Pain management initially consulted, services currently unavailable. Denies chest pain, palpitations or shortness of breath. Denies lightheadedness, dizziness or focal deficits. Significant clinical improvement. Cleared by orthopedic surgery for discharge. Patient is being discharged home in a stable condition with guarded prognosis. The impression and plan of care has been dictated as directed. : I performed a history and examination of this patient, discussed the same with the dictator. I agree with the dictator's note ,documented as a scribe. Any additional findings or plans will be noted. Patient Condition at Discharge: Stable Plan - Discharge Summary Discharge Rx Participant: No New Discharge Prescriptions: New predniSONE [Deltasone] 20 mg PO DIRECTED 12 Days #24 tab Gabapentin [Neurontin] 300 mg PO BID #60 cap Famotidine [Pepcid] 20 mg PO BID #24 tablet HYDROcodone/APAP 5-325MG [Rankin 5-325] 1 tab PO Q6HR PRN 3 Days #12 tab PRN Reason: Pain No Action Ondansetron Odt [Zofran Odt] 4 mg PO Q8HR PRN #10 tab PRN Reason: Nausea methylPREDNISolone [Medrol] 8 mg PO DAILY Diazepam [Valium] 5 mg PO Q8H PRN PRN Reason: Muscle Spasm Zolpidem [Ambien] 10 mg PO HS Sertraline [Zoloft] 100 mg PO HS Pantoprazole Sodium [Protonix] 40 mg PO DAILY PRN PRN Reason: Heartburn Naproxen 500 mg PO BID Levothyroxine Sodium [Synthroid] 100 mcg PO DAILY Ibuprofen [Motrin] 600 mg PO BID PRN PRN Reason: Pain Gabapentin [Neurontin] 100 mg PO BID Discharge Medication List Ondansetron Odt [Zofran Odt] 4 mg PO Q8HR PRN #10 tab 08/21/19 [Rx] Diazepam [Valium] 5 mg PO Q8H PRN 01/02/20 [History] Gabapentin [Neurontin] 100 mg PO BID 01/02/20 [History] Ibuprofen [Motrin] 600 mg PO BID PRN 01/02/20 [History] Levothyroxine Sodium [Synthroid] 100 mcg PO DAILY 01/02/20 [History] Naproxen 500 mg PO BID 01/02/20 [History] Pantoprazole Sodium [Protonix] 40 mg PO DAILY PRN 01/02/20 [History] Sertraline [Zoloft] 100 mg PO HS 01/02/20 [History] Zolpidem [Ambien] 10 mg PO HS 01/02/20 [History] methylPREDNISolone [Medrol] 8 mg PO DAILY 01/02/20 [History] Famotidine [Pepcid] 20 mg PO BID #24 tablet 01/05/20 [Rx] Gabapentin [Neurontin] 300 mg PO BID #60 cap 01/05/20 [Rx] HYDROcodone/APAP 5-325MG [Rankin 5-325] 1 tab PO Q6HR PRN 3 Days #12 tab 01/05/20 [Rx] predniSONE [Deltasone] 20 mg PO DIRECTED 12 Days #24 tab 01/05/20 [Rx] Follow up Appointment(s)/Referral(s): Hakeem Gill PAC [PHYSICIAN PLASTIC WORKER] - 01/24/20 2:40 pm (Patient may follow-up with Hakeem Gill PA-C or Dr. Pepito Salcedo at [facility] in 2 weeks following discharge. ) Sai Garvey MD [Primary Care Provider] - 1 Week Activity/Diet/Wound Care/Special Instructions: 1. Avoid heavy lifting and excessive activities with the right upper extremity Okay to ambulate as tolerated. Avoid any heavy or rigorous activity. No overhead activity with right upper extremity.
[2020-01-05 12:21] LABS: Glucose,Whole Blood 121 mg/dL (75-99)
== END 2020-01-05 14:13 | disposition home or self-care (01) ==
LOC: 5NMEDONC 16:52 → 6PED 01-03 12:31
PROVIDERS: ADMIT Family Medicine; ATTEND Family Medicine
DX: M50.121 Cervical disc disorder at C4-C5 level with radiculopathy (principal); M50.122 Cervical disc disorder at C5-C6 level with radiculopathy; M19.011 Primary osteoarthritis, right shoulder; M48.02 Spinal stenosis, cervical region; E03.9 Hypothyroidism, unspecified; E78.5 Hyperlipidemia, unspecified; Z87.891 Personal history of nicotine dependence; G83.20 Monoplegia of upper limb affecting unspecified side; Z90.710 Acquired absence of both cervix and uterus; Z79.890 Hormone replacement therapy; Z79.899 Other long term (current) drug therapy; Z79.1 Long term (current) use of non-steroidal anti-inflammatories (NSAID); Z79.52 Long term (current) use of systemic steroids; Z88.2 Allergy status to sulfonamides; Z98.890 Other specified postprocedural states
CPT/HCPCS: 96361 ×4; 96374; 96376 ×3; 80048; 85025; 72156; 73223; G0378 ×5; G0379; J2930 ×4; A9585

== ENCOUNTER → 2020-05-23 | Outpatient (CLI) | payer OTHER, MEDICARE ==
[2020-05-23 13:10] LABS: HCT 40.3 % (34.0-46.0); HGB 13.1 gm/dL (11.4-16.0); MCH 30.4 pg (25.0-35.0); MCHC 32.5 g/dL (31.0-37.0); MCV 93.5 fL (80.0-100.0); Mean Platelet Volume 7.6; Platelet Count 263 k/uL (150-450); RBC 4.31 m/uL (3.80-5.40); RDW 14.3 % (11.5-15.5)
[2020-05-23 13:21] LABS: Calcium 9.3 mg/dL (8.4-10.2); Potassium 4.1 mmol/L (3.5-5.1)
[2020-05-23 13:30] LABS: INR 0.9 (<1.2)
[2020-05-23 13:31] LABS: Partial Thromboplastin Time 22.6 sec (22.0-30.0); Prothrombin Time 9.7 sec (9.0-12.0)
[2020-05-23 13:48] LABS: Amorphous Sediment,Urine Many /hpf; Appearance,Urine Cloudy (Clear); Bacteria,Urine Rare /hpf; Bilirubin,Urine Negative (Negative); Blood,Urine Negative (Negative); Color,Urine Yellow; Glucose,Urine (UA) Negative (Negative); Hyaline Casts,Urine 1 /lpf (0-2); Ketones,Urine Negative (Negative); Leukocyte Esterase,Urine Negative (Negative); Mucus,Urine Occasional /hpf; Nitrite,Urine Negative (Negative); Protein,Urine Negative (Negative); RBC,Urine 1 /hpf (0-5); Specific Gravity,Urine 1.015 (1.001-1.035); Urobilinogen,Urine <2.0 mg/dL (<2.0); WBC,Urine 3 /hpf (0-5)
--- NOTE | 2020-05-23 17:04 | XR ---
EXAMINATION TYPE: XR chest 2V DATE OF EXAM: 05/23/2020 CLINICAL HISTORY: Presurgical testing TECHNIQUE: Frontal and lateral views of the chest are obtained. COMPARISON: None FINDINGS: The cardiomediastinal silhouette is within normal limits for size. Pulmonary vasculature i s normal. There is no focal air space opacity, pleural effusion, or pneumothorax seen. The osseous st ructures are intact. IMPRESSION: No acute cardiopulmonary process.
== END | disposition home or self-care (01) ==
LOC: LABPAT 11:59
PROVIDERS: ATTEND Orthopaedic Surgery Orthopaedic Surgery of the Spine
DX: Z01.818 Encounter for other preprocedural examination (principal); Z79.01 Long term (current) use of anticoagulants; M48.02 Spinal stenosis, cervical region
CPT/HCPCS: 36415; 71046; 80048; 81001; 85027; 85610; 85730; 93005

== ENCOUNTER 2020-05-30 06:20 | Day surgery (SDC) | payer MEDICARE, OTHER ==
[2020-05-24 12:10] VITALS: BMI 32.8
[~2020-05-30 06:20] MED LIST: DEXAMETHASONE SOD PHOSPHATE 10 MG/ML 1 ML VIAL IV ONE; MIDAZOLAM 2 MG/2 ML VIAL IV PRN; ONDANSETRON 4 MG/2 ML VIAL IVP ONE; SCOPOLAMINE 1.5MG/72HR PATCH TRANSDERM ONE; ceFAZolin 1,000 MG in SODIUM CHLORIDE 0.9% IRRIGATIO 1,000 ML IRRIGATION ONE
[2020-05-30] MEDS ORDERED: ONDANSETRON 4 MG/2 ML VIAL ONE (06:50)
[2020-05-30] MEDS ORDERED: LIDOCAINE 1% (10MG/ML) FOR IV START INTRADERMA ONE (07:00)
[2020-05-30] MEDS: LACTATED RINGERS 1,000 ML IV SCH (07:02)
[2020-05-30 07:03] LABS: Glucose,Whole Blood 97 mg/dL (75-99)
[2020-05-30] MEDS ORDERED: WATER FOR INJECTION, STERILE 10 ML VIAL IV ONE (07:25)
[2020-05-30] MEDS ORDERED: PROPOFOL 10 MG/ML 20 ML VIAL IV ONE (07:25)
[2020-05-30] MEDS ORDERED: HYDROmorphone (PF) 1 MG/ML ONE (07:25)
[2020-05-30] MEDS ORDERED: SUCCINYLCHOLINE CHLORIDE 100 MG/5 ML SYR IV ONE (07:25)
[2020-05-30] MEDS ORDERED: LIDOCAINE 1% INJ 10MG/ML (20 ML MDV) ONE (07:25)
[2020-05-30] MEDS ORDERED: fentaNYL (PF) 50 MCG/ML 2 ML AMP ONE (07:25)
[2020-05-30] MEDS ORDERED: ePHEDrine SULFATE/0.9% NACL/PF 50 MG/5 ML SYRINGE IV ONE (07:25)
[2020-05-30] MEDS ORDERED: MIDAZOLAM 2 MG/2 ML VIAL ONE (07:25)
[2020-05-30] MEDS ORDERED: LIDOCAINE 0.5%-EPI 1:200,000 50 ML VIAL SQ ONE (07:30)
[2020-05-30] MEDS ORDERED: THROMBIN (BOVINE) 5,000 UNIT VIAL TOPICAL ONE (07:30)
[2020-05-30] MEDS ORDERED: GELATIN SPONGE,ABSORB (LARGE) 1 EACH SPONGE TOPICAL ONE (07:30)
[2020-05-30] MEDS ORDERED: BENZOCAINE/MENTHOL LOZENG 1 EACH LOZENGE MUCOUS MEM PRN (10:07)
[2020-05-30] MEDS ORDERED: HYDROmorphone 0.5 MG/0.5 ML SYRINGE IVP PRN (10:07)
[2020-05-30] MEDS ORDERED: ACETAMINOPHEN TAB 325 MG TAB PO PRN (10:07)
[2020-05-30] MEDS ORDERED: MAGNESIUM HYDROXIDE 2,400 MG/10 ML CUP PO PRN (10:07)
[2020-05-30] MEDS ORDERED: diazePAM 5 MG TAB PO PRN (10:09)
[2020-05-30] MEDS: HYDROmorphone 0.5 MG/0.5 ML SYRINGE IVP PRN ×3 (10:12→10:40)
--- NOTE | 2020-05-30 10:16 | P.OP ---
Date of Procedure: 05/30/20 Preoperative Diagnosis: Severe cervical stenosis C4 5 C5 6 C6 7, degenerative disc disease C4 5 C5 6 C6 7, neck pain, upper extremity radiculopathy, upper extremity weakness, herniated nucleus pulposis C4 5 C5 6 C6 7 Postoperative Diagnosis: Same Anesthesia: GETA Pathology: none sent Condition: stable Disposition: PACU Description of Procedure: BRIEF OPERATIVE NOTE Preoperative Diagnosis:Severe cervical stenosis C4 5 C5 6 C6 7, degenerative disc disease C4 5 C5 6 C6 7, neck pain, upper extremity radiculopathy, upper extremity weakness, herniated nucleus pulposis C4 5 C5 6 C6 7 Postoperative Diagnosis:Severe cervical stenosis C4 5 C5 6 C6 7, degenerative disc disease C4 5 C5 6 C6 7, neck pain, upper extremity radiculopathy, upper extremity weakness, herniated nucleus pulposis C4 5 C5 6 C6 7 Procedure: Anterior cervical decompression with discectomy and fusion C4 5 C5 6 C6 7 Placement of interbody graft C4 5 C5 6 C6 7 Application of anterior cervical plate C4 5 6 and 7 Surgeon: Dr. Salcedo [employer] Boat Driver: Hakeem Davis is present throughout the entire the case persistence during positioning, dissection, exposure, visualization, and all crucial elements of the case as well as closure. Anesthesia: General anesthesia Estimated blood loss: Approximate 75 mL Complications: None apparent Components implanted: K2M Oklee anterior cervical plate system with Vikos interbody allograft bone graft and 1 mL of DBX bone putty supplement the allograft. Disposition: To recovery room in good stable condition. OPERATIVE INDICATIONS The patient has had long-standing issues in their neck and upper extremities. She's been having significant worsening over the past several months. She was having severe problems at her neck and toward her right upper extremity and was developing some weakness at her right upper extremity as well. She's not have significant changes at her cervical spine with stenosis at C4 5 C5 6 and C6 7 and degenerative disc disease which correlated well with her neck and upper extremity symptoms. The patient has been through conservative treatment. We discussed various treatment options including surgery, and the patient wishes to proceed with surgery We discussed the risk, patient's alternatives and benefits of surgery including but not limited to, risk of bleeding risk of infection, risk of need for further surgery, risk of decreased, loss of motion, muscle function, malunion nonunion, hardware failure, nerve damage, paralysis, heart attack, and . OPERATIVE SUMMARY After discussing all the risks, patient alternatives and benefits at length, the patient elected to proceed with surgical intervention, signed informed consent, and presented for their procedure. The patient was seen and examined in the preoperative holding area and the surgical site was marked. The patient was given antibiotics and brought to the operating room. The patient was positioned on the operating room table in a supine position being careful to pad any bony prominences and pressure points. The patient was sedated and intubated by anesthesia in standard fashion. Once the airway and C- spine were stabilized the patient's arms were padded and tucked at her side, with her shoulders gently taped. The head was placed in a donut pad with the neck in good neutral alignment and position. We were careful to maintain the patient's cervical spine and good neutral alignment and position throughout. The patient was prepped and draped in a normal standard fashion. An appropriate timeout and keystone protocol performed. We were able to proceed with the surgery. The local wound area was infiltrated with local anesthetic. An incision was made transversely approximately 2-1/2 cm over the appropriate levels at C5 6. Dissection was taken down subcutaneously to the level of the platysma which was split in line with its fibers. Dissection was taken with a carotid approach, with the trachea and esophagus medial and the carotid sheath laterally. We dissected down to the anterior surface of the vertebral bodies. Intraoperative x-ray was taken which showed a marker at the appropriate level at C5 6. With the appropriate level positively confirmed, we were able to proceed with discectomy at the appropriate levels. I started at C 4 5 and C5 6 and then C6 7. All of the operative levels were exposed appropriately. The patient had all their twitches back, and there was no evidence of recurrent laryngeal issue. The wound was copiously irrigated and suctioned dry as had been done periodically throughout the case. At the appropriate level/levels, I established an annulotomy with an 11 blade scalpel. No was made of obvious severe disc height loss and severe disc degeneration at each of the levels. Anterior cervical osteophytes were removed as well. A discectomy was performed with a combination of pituitary rongeurs, curettes, a high-speed bur, and Kerrison rongeurs. The posterior longitudinal ligament was taken down as were any posterior osteophytes. There were osteophytes posteriorly at each levels particularly at C5 6 where there is a very large central osteophyte which had been to meticulously taken down. This gave good central and bilateral foraminal decompression. There is no evidence of any dural tear or leak. The endplates were prepared with a high-speed bur. With the endplates in good parallel position, I was able to size for the appropriate size interbody graft. The wound was irrigated and suctioned dry the graft was prepared and malleted into position. It had good alignment and position with the anterior surface flush with the anterior surface of the vertebral bodies. This was done similarly the appropriate levels first at C4 5 and C5 6 and then C6 7. With the grafts intact, I was able to measure and contour and appropriate sized plate. The plate was positioned at the midline over the appropriate levels. Screw holes were established with a hand drill and drill guide. Screws were placed in good alignment and position with excellent bony purchase atC4 5 C5 6 C6 7. They were seated under the locking device. The construct was checked and found to be stable. Intraoperative x-ray was taken which showed good alignment and position of the implants at the appropriate levels. There was no evidence of any dural tear or leak. Good hemostasis was maintained. The wound was copiously irrigated and suctioned dry as had been done periodically throughout the case. The platysma was closed with absorbable suture. The subcutaneous tissue was closed. The subcuticular tissue was closed with absorbable suture. The wound was cleaned and dried and dressed appropriately. A soft cervical collar was placed appropriately. The patient was woken up by anesthesia, extubated, transferred back gently to their hospital bed and brought to the recovery room in good stable condition. The patient will be admitted to the hospital for appropriate postoperative care, medical management and monitoring. We will continue to follow them closely about the postoperative course.
--- NOTE | 2020-05-30 10:33 | XR ---
EXAMINATION TYPE: XR cervical spine 1V DATE OF EXAM: 05/30/2020 TECHNIQUE: Crosstable portable view of the cervical spine obtained. HISTORY: needle placement COMPARISON: Cervical spine radiograph 04/27/2019 FINDINGS: The cervical spine is visualized from C1 through C6 level. Normal alignment without eviden ce of acute fracture or dislocation. Needle is seen at the C5-C6 disc interspace level. Patient is in tubated. IMPRESSION: Needle at the C5-C6 disc space level.
[2020-05-30] MEDS ORDERED: ONDANSETRON 4 MG/2 ML VIAL IVP ONE (10:46)
--- NOTE | 2020-05-30 10:49 | XR ---
EXAMINATION TYPE: XR cervical spine 1V DATE OF EXAM: 05/30/2020 TECHNIQUE: Crosstable lateral portable view of the cervical spine obtained. HISTORY: hardware placement COMPARISON: Cervical spine radiograph 05/30/2020 at 8:16 AM FINDINGS: Interval placement of anterior fixation hardware and interbody spacer devices from C4 thro ugh C7. There is normal lateral alignment of the spine. No fracture or dislocation seen. IMPRESSION: Interval anterior fixation hardware and interbody spacer devices from C4 through C7.
[2020-05-30] MEDS: SODIUM CHLORIDE 0.9% 1,000 ML IV SCH (11:23)
[2020-05-30] MEDS: HYDROcodone/APAP 5-325MG 1 EACH TAB PO PRN ×3 (11:30→19:29)
[2020-05-30] MEDS: HYDROmorphone 1 MG/ML 1 ML SYRINGE IVP PRN ×2 (14:18→21:52)
[2020-05-30] MEDS: GABAPENTIN 300 MG CAP PO SCH ×2 (16:16→21:48)
[2020-05-30] MEDS: ONDANSETRON 4 MG/2 ML VIAL IVP PRN (17:34)
[2020-05-30 19:44] VITALS: RESP 18
[2020-05-30] MEDS ORDERED: SERTRALINE 100 MG TAB PO SCH (21:00)
[2020-05-30] MEDS ORDERED: amLODIPine 5 MG TAB PO SCH (21:00)
--- NOTE | 2020-05-30 23:30 | CONS ---
CONSULTATION A 64-year-old white female status post cervical spine surgery for medical management consult. She is getting 8/10 pain in her neck area. Has got a cervical collar on. She is status post severe cervical stenosis, C4, 5, 6, 7, degenerative disc disease 4, 5, 6, 7, extremity radiculopathy, neck pain, upper extremity weakness, herniated discs C4, 5, 6, 7. Pain control and home medicines will be reordered. REVIEW OF SYSTEMS: Fourteen-point review of systems negative except for mentioned in HPI. PHYSICAL EXAMINATION: CARDIOVASCULAR: S1, S2. LUNGS: Clear. GI: Soft. HEMATOLOGY: Negative Homans. NECK: Cervical collar. ASSESSMENT: Status post cervical radiculopathy, cervical stenosis, cervical disc repair home. Home medications will be ordered at for depression, neuropathy, etc. Possible discharge home in next 24 to 48 hours if her pain is under better control. Reordered her hypertension medicine, amlodipine 5, aspirin 81 daily, diazepam 5 mg q.8 hours, gabapentin 600 t.i.d., levothyroxine 100 mcg daily, and Zoloft 100 mg a day. Prognosis guarded. MMODL / IJN: [id number] /
[2020-05-31] MEDS: ONDANSETRON 4 MG/2 ML VIAL IVP PRN ×2 (00:20→08:39)
[2020-05-31] MEDS: HYDROcodone/APAP 5-325MG 1 EACH TAB PO PRN ×3 (02:00→12:44)
[2020-05-31] MEDS: HYDROmorphone 1 MG/ML 1 ML SYRINGE IVP PRN (04:33)
[2020-05-31] MEDS: SODIUM CHLORIDE 0.9% 1,000 ML IV SCH ×2 (04:37→10:49)
[2020-05-31] MEDS ORDERED: LEVOTHYROXINE 100 MCG TAB PO SCH (06:30)
[2020-05-31] MEDS ORDERED: ONDANSETRON 4 MG/2 ML VIAL IM STA (08:31)
[2020-05-31] MEDS: LACTATED RINGERS 1,000 ML IV SCH (08:37)
[2020-05-31] MEDS: GABAPENTIN 300 MG CAP PO SCH (08:40)
[2020-05-31] MEDS ORDERED: ASPIRIN 81 MG PO SCH (09:00)
[2020-05-31] MEDS ORDERED: SENNOSIDES-DOCUSATE SODIUM 1 EACH TAB PO SCH ×2 (09:00)
--- NOTE | 2020-05-31 10:02 | P.DS ---
Providers Date of admission: 05/30/2020 Attending physician: Emilie Salcedo Primary care physician: [facility] Course: The patient presented on the day of admission as per their operative note. She had severe cervical stenosis with upper extremity radiculopathy and weakness. She underwent her anterior cervical decompression with discectomy and fusion as per her operative note. She feels her hands are making improvement already today. She feels comfortable with her medications. She has some soreness at the base of her neck but she is tolerating that adequately. Physical Exam The incision site is clean dry and intact. There is no erythema no drainage. There is no purulence no evidence of infection. There is some mild ecchymosis around the incision site. There is no tension at this site. There is some mild swelling. Her neck is supple and soft. Abdomen soft and nontender. Chest has good excursion with deep inspiration and expiration. The patient has active and passive range of motion intact at the upper and lower extremities. There is no acute change in neurologic status. She has good motion in her hands fingers and arms. She has been ambulatory around the room. Hospital Course Postoperative day #1 status post anterior cervical decompression with discectomy and fusion C4 5 C5 6 C6 7 for her disc herniation with severe significant cervical stenosis with upper extremity radiculopathy and weakness. Patient feels she is making good progress. The patient has been making good progress postoperatively. They have completed the prophylactic antibiotics without any signs or symptoms of infection. The patient has been able to advance their diet, and is tolerating diet adequately. The pain was initially controlled with IV medications and is now controlled appropriately with oral medications. The patient has been able to increase their mobilization. The patient has progressed appropriately. I think they are in good stable condition for discharge today. They will be sent home with appropriate prescriptions. I answered their questions to the best of my ability in a language that they can understand and they are agreeable with the plan. They will follow up as directed in approximately 2 weeks or sooner if she is having problems.. Patient Condition at Discharge: Good Plan - Discharge Summary Discharge Rx Participant: No New Discharge Prescriptions: New HYDROcodone/APAP 5-325MG [[place] 5] 1 each PO Q4HR PRN #42 tab PRN Reason: Pain No Action diazePAM [Valium] 5 mg PO Q8H PRN PRN Reason: Muscle Spasm Zolpidem [Ambien] 10 mg PO HS Sertraline [Zoloft] 100 mg PO HS Naproxen 500 mg PO BID Levothyroxine Sodium [Synthroid] 100 mcg PO DAILY Ibuprofen [Motrin] 600 mg PO BID PRN PRN Reason: Pain amLODIPine [Norvasc] 5 mg PO HS Gabapentin [Neurontin] 600 mg PO TID traMADol HCL [Ultram] 50 mg PO DAILY Aspirin [Adult Low Dose Aspirin EC] 81 mg PO DAILY Discharge Medication List Ibuprofen [Motrin] 600 mg PO BID PRN 01/02/20 [History] Levothyroxine Sodium [Synthroid] 100 mcg PO DAILY 01/02/20 [History] Naproxen 500 mg PO BID 01/02/20 [History] Sertraline [Zoloft] 100 mg PO HS 01/02/20 [History] Zolpidem [Ambien] 10 mg PO HS 01/02/20 [History] diazePAM [Valium] 5 mg PO Q8H PRN 01/02/20 [History] Aspirin [Adult Low Dose Aspirin EC] 81 mg PO DAILY 05/24/20 [History] Gabapentin [Neurontin] 600 mg PO TID 05/24/20 [History] amLODIPine [Norvasc] 5 mg PO HS 05/24/20 [History] traMADol HCL [Ultram] 50 mg PO DAILY 05/24/20 [History] HYDROcodone/APAP 5-325MG [[place] 5] 1 each PO Q4HR PRN #42 tab 05/31/20 [Rx] Follow up Appointment(s)/Referral(s): Emilie Salcedo DO [Doctor of Osteopathic Medicine] - 2 Weeks Activity/Diet/Wound Care/Special Instructions: Keep site clean. May shower with waterproof Tegaderm intact. Do not soak in a tub. After 72 hours postoperatively, patient May remove dressing and then may shower with area uncovered. Leave Steri-Strips intact and allow them to fray off on their own. May ambulate as tolerated. Avoid heavy or rigorous activity. No repetitive bending twisting or lifting. No overhead work. Discharge Disposition: HOME SELF-CARE
[2020-05-31 11:35] VITALS: BP 107/82; PULSE 85; TEMP 98.2
[2020-05-31] MEDS ORDERED: ZOLPIDEM 10 MG TAB PO SCH (21:00)
== END 2020-05-31 15:00 | disposition home or self-care (01) ==
LOC: OR 06:20 → 5NMEDONC 10:22 → OR 05-31 15:00
PROVIDERS: ATTEND Orthopaedic Surgery Orthopaedic Surgery of the Spine
DX: M50.121 Cervical disc disorder at C4-C5 level with radiculopathy (principal); M48.02 Spinal stenosis, cervical region; M75.41 Impingement syndrome of right shoulder; M19.011 Primary osteoarthritis, right shoulder; M79.12 Myalgia of auxiliary muscles, head and neck; I10 Essential (primary) hypertension; E78.5 Hyperlipidemia, unspecified; E03.9 Hypothyroidism, unspecified; F32.9 Major depressive disorder, single episode, unspecified; Z88.2 Allergy status to sulfonamides; Z87.891 Personal history of nicotine dependence; Z79.890 Hormone replacement therapy; Z79.82 Long term (current) use of aspirin; Z79.891 Long term (current) use of opiate analgesic; Z79.899 Other long term (current) drug therapy; Z90.49 Acquired absence of other specified parts of digestive tract; Z90.710 Acquired absence of both cervix and uterus; Z98.890 Other specified postprocedural states
CPT/HCPCS: 86900; 86901; 86850; 72020; 22551; 22552 ×2; 22853 ×3; 20930; 22846; C1713 ×2; C1762 ×2; J2250; J0690 ×3; J2405 ×2; J2001; J3010; J1170 ×3; J0330; J2704

== ENCOUNTER 2020-07-23 14:38 | Inpatient (IN) | payer OTHER, MEDICARE ==
[2020-07-23] MEDS ORDERED: ACETAMINOPHEN TAB 500 MG TAB PO PRN (17:26)
[2020-07-23] MEDS ORDERED: diphenhydrAMINE 25 MG CAP PO PRN (17:39)
[2020-07-23] MEDS: HYDROcodone/APAP 7.5-325MG 1 EACH TAB PO PRN (17:44)
[2020-07-23] MEDS: SODIUM CHLORIDE 0.9% 1,000 ML IV SCH (17:45)
[2020-07-23 18:03] LABS: Basophils # (A) 0.1 k/uL (0-0.2); Basophils % (A) 1 %; Eosinophils # (A) 0.1 k/uL (0-0.7); Eosinophils % (A) 1 %; HCT 32.2 % (34.0-46.0); HGB 10.5 gm/dL (11.4-16.0); Lymphocytes # (A) 0.9 k/uL (1.0-4.8); Lymphocytes % (A) 7 %; MCH 30.6 pg (25.0-35.0); MCHC 32.6 g/dL (31.0-37.0); MCV 93.9 fL (80.0-100.0); Mean Platelet Volume 8.9; Monocytes # (A) 0.6 k/uL (0-1.0); Monocytes % (A) 5 %; Neutrophils # (A) 10.7 k/uL (1.3-7.7); Neutrophils % (A) 84 %; Platelet Count 316 k/uL (150-450); RBC 3.43 m/uL (3.80-5.40); RDW 13.6 % (11.5-15.5); WBC 12.7 k/uL (3.8-10.6)
[2020-07-23 18:17] LABS: ALT 19 U/L (4-34); AST 22 U/L (14-36); African American GFR (CKD) 39 (>60 ml/min/1.73 sqM); Albumin 3.5 g/dL (3.5-5.0); Albumin/Globulin Ratio 1.1; Alkaline Phosphatase 126 U/L (38-126); Anion Gap 10 mmol/L; Blood Urea Nitrogen 28 mg/dL (7-17); Carbon Dioxide 24 mmol/L (22-30); Chloride 96 mmol/L (98-107); Globulin 3.2 g/dL; Glucose 99 mg/dL (74-99); Non-African American GFR(CKD) 34 (>60 ml/min/1.73 sqM); Potassium 4.2 mmol/L (3.5-5.1); Sodium 130 mmol/L (137-145); Total Bilirubin 0.6 mg/dL (0.2-1.3); Total Protein 6.7 g/dL (6.3-8.2)
--- NOTE | 2020-07-23 18:23 | XR ---
EXAMINATION TYPE: XR chest 2V DATE OF EXAM: 07/23/2020 COMPARISON: Prior chest x-ray 05/23/2020 HISTORY: COPD TECHNIQUE: Frontal and lateral views of the chest are obtained. FINDINGS: There is no focal air space opacity, pleural effusion, or pneumothorax seen. Minimal subse gmental basilar atelectatic changes are suspected. The cardiac silhouette size is within normal limit s. Surgical changes are present in the cervical spine. Patient is rotated. Prominent lung volume cou ld be indicative of underlying COPD. Surgical clips present in the right upper quadrant. There is irwin ntration of the right hemidiaphragm. The osseous structures are intact. IMPRESSION: Minimal subsegmental basilar atelectatic changes
[2020-07-23 18:30] LABS: Appearance,Urine Cloudy (Clear); Bacteria,Urine Moderate /hpf; Bilirubin,Urine Negative (Negative); Blood,Urine Small (Negative); Color,Urine Yellow; Glucose,Urine (UA) Negative (Negative); Hyaline Casts,Urine 1 /lpf (0-2); Ketones,Urine Negative (Negative); Leukocyte Esterase,Urine Large (Negative); Mucus,Urine Rare /hpf; Nitrite,Urine Positive (Negative); PH, Urine 5.5 (5.0-8.0); Protein,Urine 1+ (Negative); RBC,Urine 10 /hpf (0-5); Specific Gravity,Urine 1.011 (1.001-1.035); Squamous Epithelial Cell,Urine 1 /hpf (0-4); Urobilinogen,Urine <2.0 mg/dL (<2.0); WBC,Urine >182 /hpf (0-5)
[2020-07-23] MEDS: GABAPENTIN 300 MG CAP PO SCH (19:08)
[2020-07-23] MEDS: ONDANSETRON 4 MG/2 ML VIAL IVP PRN (19:27)
[2020-07-23] MEDS: METOPROLOL SUCCINATE (ER) 50 MG TAB.ER.24H PO SCH (21:31)
[2020-07-23] MEDS: ZOLPIDEM 10 MG TAB PO PRN (21:31)
[2020-07-23] MEDS: SERTRALINE 100 MG TAB PO SCH (21:31)
[2020-07-24] MEDS: ONDANSETRON 4 MG/2 ML VIAL IVP PRN ×3 (01:03→18:51)
[2020-07-24 05:42] LABS: Basophils # (A) 0.1 k/uL (0-0.2); Basophils % (A) 1 %; Eosinophils # (A) 0.2 k/uL (0-0.7); Eosinophils % (A) 2 %; HCT 27.7 % (34.0-46.0); HGB 9.1 gm/dL (11.4-16.0); Hypochromasia Slight; Lymphocytes # (A) 1.1 k/uL (1.0-4.8); Lymphocytes % (A) 11 %; MCH 31.2 pg (25.0-35.0); MCHC 32.9 g/dL (31.0-37.0); MCV 94.9 fL (80.0-100.0); Mean Platelet Volume 8.2; Monocytes # (A) 0.7 k/uL (0-1.0); Monocytes % (A) 7 %; Neutrophils # (A) 7.8 k/uL (1.3-7.7); Neutrophils % (A) 77 %; Platelet Count 260 k/uL (150-450); RBC 2.92 m/uL (3.80-5.40); RDW 13.7 % (11.5-15.5); WBC 10.2 k/uL (3.8-10.6)
[2020-07-24] MEDS: LEVOTHYROXINE 100 MCG TAB PO SCH (06:12)
[2020-07-24] MEDS: HYDROcodone/APAP 7.5-325MG 1 EACH TAB PO PRN ×3 (06:16→21:21)
[2020-07-24] MEDS: GABAPENTIN 300 MG CAP PO SCH ×3 (06:16→21:22)
[2020-07-24] MEDS: SODIUM CHLORIDE 0.9% 1,000 ML IV SCH ×2 (06:19→19:25)
[2020-07-24] MEDS: ASPIRIN 81 MG PO SCH (08:41)
[2020-07-24] MEDS: METOPROLOL SUCCINATE (ER) 50 MG TAB.ER.24H PO SCH ×2 (08:42→21:20)
[2020-07-24] MEDS: diazePAM 5 MG TAB PO PRN (08:46)
[2020-07-24 09:31] LABS: African American GFR (CKD) 61.4 (60.0-200.0); Albumin 3.2 g/dL (3.80-4.90); Albumin/Globulin Ratio 1.52 (1.60-3.17); Anion Gap 10.5 mmol/L (4.00-12.00); Calcium 8.1 mg/dL (8.7-10.3); Carbon Dioxide 22.5 mmol/L (21.6-31.8); Globulin 2.1 g/dL (1.6-3.3); Potassium 4.2 mmol/L (3.5-5.5); Total Bilirubin 0.2 mg/dL (0.3-1.2); Total Protein 5.3 g/dL (6.2-8.2)
--- NOTE | 2020-07-24 09:58 | HP ---
HISTORY AND PHYSICAL Nataliya Page is a 65-year-old white female who was admitted with urosepsis, severe dehydration and extreme weakness and fatigue, was admitted for IV fluids and IV antibiotics after failing outpatient treatment. She has near syncope in the office. At this time, her BUN is up to 28, creatinine 1.59 for severe dehydration. She also has large leukocyte esterase and over 182 white cells and extremely poor skin turgor, dry mucous membranes, and she is near syncope when she stands up. She will get admitted for fluids on IV antibiotics and for culture workup. She has recently surgery. She has recently had a cervical spine repair with fusion in multiple areas. She has a history of hypertension, hypothyroidism, depression, insomnia, anxiety. MEDICATIONS: We have her on aspirin 81 mg daily, Valium 5 mg b.i.d. p.r.n., Benadryl 25 q.h.s. p.r.n., Neurontin 600 t.i.d. for cervical neuritis, Motrin 600 b.i.d., Joes 7.5 b.i.d., Synthroid 100 mcg daily, Metoprolol succinate 50 mg b.i.d., Zoloft 100 mg daily, Ambien 10 mg daily at night. Diet is regular. 14 POINT REVIEW OF SYSTEMS: As mentioned above, otherwise negative. Temperature is 98, pulse is 60s to 70s, respiratory 18 to 20, blood pressure is low 90s/60s. She has an O2 which is 94 on room air. She see,s extremely integument, poor skin turgor, dry mucous membranes. Neurologically, she is dizzy with any standing. PSYCH: She is alert and oriented x3. She says she is dizzy. She is giving appropriate answers. LUNGS: Show mild wheeze at the bases. HEART: S1, S2. No murmurs, rubs, or gallops. ABDOMEN: Soft, distended, obesity, tense palpation, severe in the right flank and in the right lower quadrant. : As mentioned above. Suprapubic tenderness. HEMATOLOGY: Negative Homans. Normal dorsalis pedis posterior pulse as mentioned. LABS: As mentioned above. UA is extremely positive, elevated BUN and creatinine, elevated white count. ASSESSMENT: Urosepsis, severe dehydration, urinary tract infection. History of COPD, hypertension, recent cervical fusion with neuropathy, hypothyroidism. Prognosis guarded. Continue with broad-spectrum antibiotics, lactic acid, blood cultures. Infectious Disease consult. MMODL / IJN: [id number] /
[2020-07-24] MEDS: IBUPROFEN 600 MG TAB PO PRN (18:52)
[2020-07-24] MEDS: SERTRALINE 100 MG TAB PO SCH (21:20)
[2020-07-24] MEDS: ZOLPIDEM 10 MG TAB PO PRN (21:22)
[2020-07-24] MEDS: PIPERACILLIN-TAZOBACTAM 3.375 GM in SODIUM CHLORIDE 0.9% 100 ML IVPB SCH (23:53)
[2020-07-25] MEDS: LEVOTHYROXINE 100 MCG TAB PO SCH (05:40)
[2020-07-25] MEDS: GABAPENTIN 300 MG CAP PO SCH ×3 (08:43→20:44)
[2020-07-25] MEDS: ASPIRIN 81 MG PO SCH (08:43)
[2020-07-25] MEDS: PIPERACILLIN-TAZOBACTAM 3.375 GM in SODIUM CHLORIDE 0.9% 100 ML IVPB SCH ×2 (08:43→16:08)
[2020-07-25] MEDS: METOPROLOL SUCCINATE (ER) 50 MG TAB.ER.24H PO SCH ×2 (08:43→21:20)
[2020-07-25] MEDS: IBUPROFEN 600 MG TAB PO PRN (08:45)
[2020-07-25] MEDS: ONDANSETRON 4 MG/2 ML VIAL IVP PRN ×2 (10:34→19:22)
[2020-07-25] MEDS: SODIUM CHLORIDE 0.9% 1,000 ML IV SCH (10:51)
[2020-07-25] MEDS: HYDROcodone/APAP 7.5-325MG 1 EACH TAB PO PRN ×2 (11:42→20:45)
[2020-07-25] MEDS: diazePAM 5 MG TAB PO PRN (11:42)
--- NOTE | 2020-07-25 14:51 | CDI ---
Documentation Clarification Form Date: 07/25/2020 02:23:07 PM From: Katia Clark RN CCDS Admit Date: 07/23/2020 03:54:00 PM Patient Name: Nataliya Page Visit Number: [id number] Discharge Date: ATTENTION: The Clinical Documentation Specialists (CDI) and [facility] Coding Staff appreciate your assistance in clarifying documentation. Please respond to the clarification below the line at the bottom and electronically sign. The CDI & [facility] Coding staff will review the response and follow-up if needed. Please note: Queries are made part of the Legal Health Record. If you have any questions, please contact the author of this message via ITS. Dr. Sai Garvey Urosepsis is documented in the H&P 07/24 History/Risk Factors: 65-year-old female presents as a direct admit for weakness and fatigue. Recent Cervical spine fusion, HTN, depression, and anxiety. Clinical Indicators: 07/23 WBC 12.7; Neutrophils 10.7 10.6 Lactic acid: 0.6 07/24 Blood cultures: No growth after 24 hours 07/23 UA Urine- protein 1+; blood small; Nitrate positive; Leukocyte Esterase Large; Wbc >182; Bacteria Moderate 07/24 UA Culture: Gram Neg Bacilli 07/23 Vital signs on admission: B/P: 117/77; HR: 85; Temp: 98.4 F Oral; RR: 17; 95% ra Treatment: 0.9Ns 75cc/hr, Rocephin Ivpb x1; Zosyn Ivpb Q 8 hr In your professional opinion, please clarify the diagnosis urosepsis UTI with Sepsis UTI without Sepsis Other, please specify Unable to determine Identify the (suspected) organism SIRS Criteria (2 or more of the following may indicate SIRS): -Temperature < 96.8F (36C) or > 101.0F (38.3C) -Heart Rate > 90 bpm -Respiratory Rate > 20 breaths/min or PaCO2 < 32 mmHg -White Blood Cell Count > 12,000 or < 4,000 cells/mm3 or > 10% bands -Lactate >2.0 mmol/L (>4.0 is equivalent to septic shock) (Last Revision: July 2017) MTDD
[2020-07-25] MEDS: SERTRALINE 100 MG TAB PO SCH (20:44)
[2020-07-25] MEDS: ZOLPIDEM 10 MG TAB PO PRN (20:44)
--- NOTE | 2020-07-26 00:20 | PN ---
PROGRESS NOTE A 65-year-old white female is feeling better at this time. Remains on IV Zosyn. She has positive E coli in the urine. She had a stool culture done which apparently was canceled. Blood cultures were negative. Prior urine culture shows E coli. The patient is improving on Zosyn. She is sensitive to multiple antibiotics. Possibly will send her home on Cipro tomorrow. She is clinically improving from rehydration. Prognosis guarded. CARDIOVASCULAR: S1, S2. LUNGS: Clear. SKIN: Decreased turgor, but improved. Hemoglobin is 9.1, white count 10.2, sodium 135, potassium 4.2, BUN is 22, creatinine is 1.1. Current treatment will be continued with IV antibiotics. Possible discharge home tomorrow as she continues to be rehydrated. MMODL / IJN: [id number] /
[2020-07-26] MEDS: SODIUM CHLORIDE 0.9% 1,000 ML IV SCH ×2 (00:43→13:48)
[2020-07-26] MEDS: PIPERACILLIN-TAZOBACTAM 3.375 GM in SODIUM CHLORIDE 0.9% 100 ML IVPB SCH ×2 (00:43→07:58)
[2020-07-26] MEDS: ONDANSETRON 4 MG/2 ML VIAL IVP PRN (03:13)
[2020-07-26 04:59] VITALS: RESP 16
[2020-07-26] MEDS: LEVOTHYROXINE 100 MCG TAB PO SCH (05:34)
[2020-07-26 06:07] LABS: Basophils # (A) 0.1 k/uL (0-0.2); Basophils % (A) 1 %; Eosinophils # (A) 0.2 k/uL (0-0.7); Eosinophils % (A) 2 %; HCT 28.4 % (34.0-46.0); Hypochromasia Slight; Lymphocytes # (A) 1.6 k/uL (1.0-4.8); Lymphocytes % (A) 15 %; MCH 29.4 pg (25.0-35.0); MCHC 31.6 g/dL (31.0-37.0); MCV 93.3 fL (80.0-100.0); Mean Platelet Volume 8.1; Monocytes # (A) 0.5 k/uL (0-1.0); Monocytes % (A) 5 %; Neutrophils # (A) 7.7 k/uL (1.3-7.7); Neutrophils % (A) 76 %; Platelet Count 343 k/uL (150-450); RBC 3.05 m/uL (3.80-5.40); RDW 13.9 % (11.5-15.5); WBC 10.1 k/uL (3.8-10.6)
[2020-07-26] MEDS: diazePAM 5 MG TAB PO PRN (06:17)
[2020-07-26] MEDS: HYDROcodone/APAP 7.5-325MG 1 EACH TAB PO PRN ×2 (06:17→13:52)
[2020-07-26] MEDS: ASPIRIN 81 MG PO SCH (07:58)
[2020-07-26] MEDS: GABAPENTIN 300 MG CAP PO SCH ×2 (07:58→17:13)
[2020-07-26] MEDS: METOPROLOL SUCCINATE (ER) 50 MG TAB.ER.24H PO SCH (07:58)
[2020-07-26 09:45] LABS: African American GFR (CKD) 68.9 (60.0-200.0); Albumin 2.9 g/dL (3.80-4.90); Albumin/Globulin Ratio 1.38 (1.60-3.17); Anion Gap 7.2 mmol/L (4.00-12.00); Calcium 8.1 mg/dL (8.7-10.3); Carbon Dioxide 26.8 mmol/L (21.6-31.8); Globulin 2.1 g/dL (1.6-3.3); Non-African American GFR(CKD) 59.5 (60.0-200.0); Potassium 4.3 mmol/L (3.5-5.5); Total Bilirubin 0.2 mg/dL (0.2-1.2)
[2020-07-26 12:11] VITALS: BP 114/75; PULSE 56; TEMP 98.1
--- NOTE | 2020-07-27 08:23 | CDI ---
Documentation Clarification Form Date: 07/25/2020 02:23:07 PM From: Katia Clark RN CCDS Admit Date: 07/23/2020 03:54:00 PM Patient Name: Nataliya Page Visit Number: [id number] Discharge Date: ATTENTION: The Clinical Documentation Specialists (CDI) and [facility] Coding Staff appreciate your assistance in clarifying documentation. Please respond to the clarification below the line at the bottom and electronically sign. The CDI & [facility] Coding staff will review the response and follow-up if needed. Please note: Queries are made part of the Legal Health Record. If you have any questions, please contact the author of this message via ITS. Dr. Sai Garvey Urosepsis is documented in the H&P 07/24 History/Risk Factors: 65-year-old female presents as a direct admit for weakness and fatigue. Recent Cervical spine fusion, HTN, depression, and anxiety. Clinical Indicators: 07/23 WBC 12.7; Neutrophils 10.7 10.6 Lactic acid: 0.6 07/24 Blood cultures: No growth after 24 hours 07/23 UA Urine- protein 1+; blood small; Nitrate positive; Leukocyte Esterase Large; Wbc >182; Bacteria Moderate 07/24 UA Culture: Gram Neg Bacilli 07/23 Vital signs on admission: B/P: 117/77; HR: 85; Temp: 98.4 F Oral; RR: 17; 95% ra Treatment: 0.9Ns 75cc/hr, Rocephin Ivpb x1; Zosyn Ivpb Q 8 hr In your professional opinion, please clarify the diagnosis urosepsis UTI with Sepsis UTI without Sepsis Other, please specify Unable to determine Identify the (suspected) organism SIRS Criteria (2 or more of the following may indicate SIRS): -Temperature < 96.8F (36C) or > 101.0F (38.3C) -Heart Rate > 90 bpm -Respiratory Rate > 20 breaths/min or PaCO2 < 32 mmHg -White Blood Cell Count > 12,000 or < 4,000 cells/mm3 or > 10% bands -Lactate >2.0 mmol/L (>4.0 is equivalent to septic shock) (Last Revision: July 2017) MTDD
--- NOTE | 2020-07-29 08:51 | PN ---
PROGRESS NOTE ADDENDUM: Please add: UTI with sepsis. MMODL / IJN: [id number] /
== END 2020-07-26 18:19 | disposition home or self-care (01) | DRG 872 ==
LOC: 6NMEDSUR 15:54
PROVIDERS: ADMIT Family Medicine; ATTEND Family Medicine
DX: A41.51 Sepsis due to Escherichia coli [E. coli] (principal); N39.0 Urinary tract infection, site not specified; J44.9 Chronic obstructive pulmonary disease, unspecified; E86.0 Dehydration; I10 Essential (primary) hypertension; E03.9 Hypothyroidism, unspecified; G47.00 Insomnia, unspecified; F41.9 Anxiety disorder, unspecified; F32.9 Major depressive disorder, single episode, unspecified; M54.12 Radiculopathy, cervical region; E66.9 Obesity, unspecified; G62.9 Polyneuropathy, unspecified; Z68.32 Body mass index [BMI] 32.0-32.9, adult; Z79.82 Long term (current) use of aspirin; Z79.890 Hormone replacement therapy; Z79.1 Long term (current) use of non-steroidal anti-inflammatories (NSAID); Z79.899 Other long term (current) drug therapy; Z98.1 Arthrodesis status
CPT/HCPCS: 71046; 80053; 81001; 83605; 85025; 87040; 87045; 87046; 87077; 87086; 87186

== ENCOUNTER → 2021-11-04 | Outpatient (CLI) | payer BC ==
--- NOTE | 2021-11-05 07:11 | CT ---
EXAMINATION TYPE: CT cervical spine wo con DATE OF EXAM: 11/04/2021 COMPARISON: Cervical spine x-ray May 30, 2020. MRI cervical spine January 02, 2020 HISTORY: Other specified dorsopathies, cervical region. Pt c/o neck pain, states fusion did not take. CT DLP: 607.90 mGycm. Automated Exposure Control for Dose Reduction was Utilized. TECHNIQUE: CT scan of the cervical spine is obtained without contrast, axial images are obtained, sa gittal and coronal reformatted images are also reviewed. FINDINGS: Cervical spine is redemonstrated in its entirety from C1 through upper thoracic levels, dem onstrates fairly stable straightened alignment. Slight grade 1 anterolisthesis C3 on C4. Prevertebra l soft tissue appears within normal limits. The C1-C2 articulation is within normal limits on the co elo images. Anterior fusion plate with artificial disc material C4-C7 levels is now present. Verteb ral body heights and disc space heights maintained above and below surgical levels. Posterior bony pr ojections at C4-C5 and C5-C6 levels efface the anterior thecal sac. Review of axial images shows no new significant disc herniation. Axial images at C3-C4 level redemons trated left sided uncovertebral facet degenerative changes causing moderate left-sided neural foramin al narrowing correlating with MRI. Axial images at C4-C5 level show left-sided uncovertebral facet sp urring causing asymmetric moderate left-sided neural foraminal narrowing correlating with MRI. Axial images at C5-C6 level on image 55 shows similar finding. Axial images at C7-T1 level are within norm al limits. Thyroid gland appears unremarkable. Lung apices show no pneumothorax. IMPRESSION: Surgical fusion C4-C7 levels with stable and straightened alignment.
== END | disposition home or self-care (01) ==
LOC: RADCTMAIN 17:21
PROVIDERS: ATTEND Family Medicine
DX: M53.82 Other specified dorsopathies, cervical region (principal); M43.12 Spondylolisthesis, cervical region; Z98.1 Arthrodesis status
CPT/HCPCS: 72125

== ENCOUNTER → 2022-04-04 | Outpatient (CLI) | payer BC ==
--- NOTE | 2022-04-05 05:33 | MR ---
EXAMINATION TYPE: MR cervical spine wo con DATE OF EXAM: 04/04/2022 COMPARISON: 01/02/2020 HISTORY: Neck pain, spasms, pain into shoulders down arms. History of surgery 2 years ago. Multiplanar multiecho imaging of the spine with no contrast. Normal alignment. There is metal artifact with anterior fusion from C4 to C7. No evidence of any sign ificant spinal stenosis. Cervical spinal cord has normal signal pattern. No edema. Brainstem is intac t. No sign of a compression fracture. There is no cervical paraspinal mass. Spinal canal measures 7.5 mm at the C5-6 level which is the narrowest point. IMPRESSION: Multilevel anterior fusion surgery. There is improvement in the spinal stenosis and disc herniations compared to old exam at the C4-5 and C5-6 levels. No evidence of any significant spinal stenosis.
== END | disposition home or self-care (01) ==
LOC: RADMRIMAIN 20:24
PROVIDERS: ATTEND Orthopaedic Surgery
DX: M50.222 Other cervical disc displacement at C5-C6 level (principal); M43.22 Fusion of spine, cervical region
CPT/HCPCS: 72141

== ENCOUNTER → 2022-11-06 | Outpatient (CLI) | payer BC ==
[2022-11-06 19:59] LABS: INR 0.9 (0.90-1.11); Prothrombin Time 10.2 sec (9.9-11.9)
[2022-11-06 20:30] LABS: ALT 15 U/L (8-44); AST 15 U/L (13-35); African American GFR (CKD) 89.2 (60.0-200.0); Albumin 4.4 g/dL (3.8-4.9); Albumin/Globulin Ratio 1.97 (1.60-3.17); Alkaline Phosphatase 75 U/L (41-126); BUN/Creat Ratio 12.77 Ratio (12.00-20.00); Blood Urea Nitrogen 10.2 mg/dL (9.0-27.0); Calcium 9.4 mg/dL (8.7-10.3); Carbon Dioxide 27.2 mmol/L (20.0-27.5); Chloride 104 mmol/L (96-109); Chol/HDL Ratio 6.44 Ratio; Globulin 2.2 g/dL (1.6-3.3); Glucose 91 mg/dL (70-110); LDL Cholesterol,Calculated 138.1 mg/dL (0.0-131.0); Non-African American GFR(CKD) 76.9 (60.0-200.0); Potassium 4.8 mmol/L (3.5-5.5); Sodium 141 mmol/L (135-145); Total Protein 6.6 g/dL (6.2-8.2)
[2022-11-06 21:18] LABS: HCT 40.4 % (37.2-46.3); HGB 12.7 g/dL (12.0-15.0); MCH 30.2 pg (27.0-32.0); MCHC 31.4 g/dL (32.0-37.0); Mean Platelet Volume 11.1 fL (9.5-12.2); NRBC Per 100 WBC 0 /100 WBCS (0.0-0.0); Platelet Count 303 X 10*3/uL (140-440); RBC 4.21 X 10*6/uL (4.10-5.20); RDW 13.2 % (11.5-14.5); WBC 8.33 X 10*3/uL (4.50-10.00)
== END | disposition home or self-care (01) ==
LOC: LABWHC1 12:39
PROVIDERS: ATTEND Family Medicine
DX: Z01.812 Encounter for preprocedural laboratory examination (principal)
CPT/HCPCS: 36415; 80053; 80061; 83036; 84443; 85027; 85610

== ENCOUNTER 2023-01-02 10:22 | Inpatient (IN) | payer BC, MEDICARE ==
[~2023-01-02 10:22] MED LIST changes: +ACETAMINOPHEN TAB 500 MG TAB PO PRN; -DEXAMETHASONE SOD PHOSPHATE 10 MG/ML 1 ML VIAL IV ONE; +DEXAMETHASONE SOD PHOSPHATE 4 MG/ML 1 ML VIAL IV ONE; +GABAPENTIN 300 MG CAP PO PRN; +HYDROmorphone 0.5 MG/0.5 ML SYRINGE IVP PRN; +LIDOCAINE 1% (10MG/ML) FOR IV START INTRADERMA PRN; -MIDAZOLAM 2 MG/2 ML VIAL IV PRN; -ONDANSETRON 4 MG/2 ML VIAL IVP ONE; +ONDANSETRON 4 MG/2 ML VIAL IVP PRN; -SCOPOLAMINE 1.5MG/72HR PATCH TRANSDERM ONE; +TRANEXAMIC ACID IN NACL,ISO-OS 1,000 MG in SALINE 1 100ML.BAG IVPB PRN; -ceFAZolin 1,000 MG in SODIUM CHLORIDE 0.9% IRRIGATIO 1,000 ML IRRIGATION ONE
[2023-01-02] MEDS: LACTATED RINGERS 1,000 ML IV SCH (12:34)
[2023-01-02] MEDS ORDERED: MIDAZOLAM 2 MG/2 ML VIAL IVP ONE (12:50)
[2023-01-02] MEDS ORDERED: fentaNYL (PF) 50 MCG/1 ML VIAL IVP ONE (12:50)
--- NOTE | 2023-01-02 12:54 | P.HPOR ---
History of Present Illness H&P Date: 01/02/23 .D:Date: 10/30/22 : 09:34am .T:Title: [facility] History and Physical Date of :[birth year] Age: 66 year Height: 5'3" Weight: 164 lbs BMI: 29.05 kg/m2 Occupation: Disabled VAS: 9 CHIEF COMPLAINT: Cervical pain recheck DOI: Chronic DOS: Hx of C4-C7 ACDF done [place] [address] Salcedo HISTORY: Xrays No new xrays taken in office Trauma or injury No Work-Related No Pain description burning, sharp. Location diffuse Activity Modification yes , unable to perform bending/twisting motions regarding the cervical region. Hand Dominance right TREATMENTS COMPLETED: 6 weeks of PT completed? Month and Year of last PT date? 2020 Yes How many sessions? Several Did it help? No, exacerbated his symptoms. Physician directed home exercise completed? yes , for greater than 3 months without any relief. Medications yes List: Sarona, Naproxen- has d/c as it was ineffective, Gabapentin, Robaxin all without relief of her symptoms. Alternative interventions Chiropractic: No Massage therapy: No R.I.C.E: yes , daily without relief. Brace: No Injections No RFA: No SUBJECTIVE: Ms. Page returns to the office for a recheck of their cervical spine. Of note, the patient reports that she has been done smoking since 10/09/22 and denies any issues with this. Patient reports no changes to her symptoms since the time of the last appointment. The patient continues to complain of increasing cervical pain since the time of the last appointment without any new injury or trauma. Furthermore the patient continues to complain of right upper extremity radicular pain with weakness along with increasing bilateral upper extremity numbness and tingling about the C3-C4 dermatomal distribution. Overall the patient has seen a progressive increase in symptoms since their onset and is very limited with her functionality at this time. Ms. Page symptoms are exacerbated with standing, ambulation, use of the arms, and flexion/extension/twisting of the neck, due to this they notes that it is very difficult for Ms. Page to complete many of their daily tasks. Patient is having severe sleep disturbances as well due to their ongoing pain and associated symptoms. Regarding treatments, the patient has previously trialed all abovementioned treatment modalities without relief of her symptoms. Patient denies trialing any other modalities at this time. For their symptoms, the patient has been taking Gabapentin, Robaxin, and Sarona all without relief of her symptoms. Otherwise the patient denies any f/c/sob/cp, no bladder or bowel retention/incontinence, no perineal numbness/tingling, and ambulates independently. HPI: Ms. Page returns to the office on 10/01/22 for a recheck of their cervical spine and to reschedule her previously discussed cervical(C2-T2) Decompression and Fusion. Patient reports a increasing cervical pain since the time of the last appointment without any new injury or trauma. Furthermore the patient continues to complain of right upper extremity radicular pain with weakness along with increasing bilateral upper extremity numbness and tingling about the C3-C4 dermatomal distribution. Overall the patient has seen a progressive increase in symptoms since their onset. Ms. Page symptoms are exacerbated with standing, ambulation, use of the arms, and flexion/extension/twisting of the neck, due to this they notes that it is very difficult for Ms. Page to complete many of their daily tasks. Patient is having severe sleep disturbances as well due to their ongoing pain and associated symptoms. Regarding treatments, the patient has previously trialed all abovementioned treatment modalities without relief of her symptoms. Patient denies trialing any other modalities at this time. For their symptoms, the patient has been taking Gabapentin, Robaxin, and Sarona all without relief of her symptoms. Otherwise the patient denies any f/c/sob/cp, no bladder or bowel retention/incontinence, no perineal numbness/tingling, and ambulates independently. Ms. Page last returned to the office on 07/02/2022 for a recheck of their cervical spine and to review her imaging. Since the time of the last appointment the patient reports increasing cervical pain radicular pain into the right upper extremity , associated with numbness and tingling through the arm into the hand. Furthermore she reports that she has been having increased fine motor function difficulty and weakness about the right hand causing frequent dropping things. Overall the patient has seen a progressive increase in symptoms since their onset. Ms. Page symptoms are exacerbated with flexion, extension, and twisting, due to this they notes that it is increasingly difficult for Ms. Page to complete many of their daily tasks. Patient is having severe sleep disturbances as well due to their ongoing pain and associated symptoms. Regarding treatments, the patient has previously trialed all abovementioned treatments without any discernable relief of her symptoms. Patient denies trialing any other modalities at this time. For their symptoms, the patient has been taking Sarona, Naproxen, Gabapentin, and Robaxin all without relief of her symptoms. Otherwise the patient denies any f/c/sob/cp, no incision concerns, no bladder or bowel retention/incontinence, no perineal numbness/tingling, and ambulates independently. Ms. Page last presented to the office on 03/13/2022 for an evaluation of her cervical spine. Patient reports symptoms persisting for 5+ years with no known injury or trauma to indicate an exact onset of her symptoms. With this she does report that her symptoms have progressively worsened over the last 4 years as well. Of note, the patient does have a history of a C4-C7 ACDF done in 2020 but denies any relief following this procedure. Regarding her symptoms, the patient reports cervical pain that increases with flexion, extension, and twisting. In addition to the pain, the patient does also report numbness and tingling into the right upper extremity as well, which is constant. She denies any sleep disturbances at this time. As for treatments, the patient has previously trialed Sarona, Naproxen, Gabapentin, and Robaxin all without relief of her symptoms. Additionally she did trialed both PT in 2020 and regularly does home exercises for greater than 3 months with no improvements as well. Overall she denies any improvements with all conservative modalities trialed thus far. She denies any bladder or bowel retention/incontinence, no perineal numbness/tingling, and ambulates independently. Of note, the patient does also complain of sharp right shoulder pain with weightlifting and significant weakness. She denies any right shoulder injury or trauma in the past or specific onset. The patients' past social, medical, family, surgical history, as well as review of systems, have been reviewed. Please refer to the Neurosurgery History and Physical form that has been scanned in to our electronic medical record system. 16 points review of systems completed and as stated in HPI, all other systems reviewed are negative. Social History: Reviewed, see appropriate section of the chart for details. P3 Social History: Smoking: former smoker, quit 10/09/22 Alcohol: none P3 Family History: Reviewed, see appropriate section of the chart for details. P2 Past Medical History: Reviewed, see appropriate section of the chart for details. [id number] Medications: Rx: Ambien Ref: 0 Rx: busPIRone Ref: 0 Rx: diazePAM Ref: 0 Rx: gabapentin Ref: 0 Rx: methocarbamoL Ref: 0 Rx: naproxen Ref: 0 Rx: Sarona Ref: 0 Rx: Zoloft Ref: 0 P1 PHYSICAL EXAMINATION: General: Awake, alert, appropriate for age, in no acute distress. HEENT: No unusual neck masses around region of lateral neck triangle, thyroid, supraclavicular groove Heart: Regular rate and rhythm, normal S1, S2 and no murmur/gallop. Lungs: Clear to auscultation bilaterally with no use of accessory muscles. Extremities: Skin warm and dry without acute lesions, coloration, temperature, skin intact, no tenderness or erythema Integument: Hairy patches: ABSENT Dorsal skin dimples: ABSENT Cafe au lait spots: ABSENT Palpation: Please see Pain drawing on Intake sheet for further detail. Midline spinal tenderness: No E6 Cervical Tenderness: Yes E6 Paralumbar tenderness: No E6 Parathoracic tenderness: No E6 Buttocks tenderness: No E6 POSTURAL and MUSCULO-SKELETAL EVALUATION: Coronal Balance: NEUTRAL Recumbent testing: Patient is able to lay flat on back Sagittal Balance: NEUTRAL Shoulder Profile: LEVEL Pelvic Girdle: LEVEL Neck ROM: RESTRICTED Lumbar ROM: UNRESTRICTED Shoulder ROM: motion asymmetry, range of motion asymmetry, visual asymmetry. Loss in ROM on the right side. Hip ROM: Symmetrical Knee ROM: Symmetrical Hands: Normal appearance, symmetrical Feet: Normal appearance, Symmetrical VASCULAR STATUS : LEFT RIGHT Wrist Pulses INTACT INTACT Pedal Pulses (Dors. pedis & post.tibialis) INTACT INTACT Color NORMAL NORMAL Edema Absent Absent NEUROLOGIC EXAMINATION: Mental Status:Awake and alert, fully oriented, with normal attention, concentration and memory, and fluent, appropriate speech. Cranial Nerves: I: Olfactory not tested. II: Visual acuity normal, no visual field deficit noted with confrontation. III,IV: Normal pupillary reflexes & intact extraocular movements without nystagmus. V,: Intact symmetrical facial sensation. VII: Intact symmetrical facial motor movement VIII: Hearing intact. IX,X: Intact gag, swallow, & normal voice. XI: Sternocleidomastoid, trapezius function intact. XII: Tongue midline with normal movements. L'hermitte's Sign: Negative / absent Spurling'Sign: Absent bilaterally. Cubital percussion test: Absent bilaterally. Vazquez-Tinel sign - Carpal region: Absent bilaterally. Straight Leg Raising: Absent bilaterally. Crossed straight leg raise: negative O8 MOTOR EXAM (0-5/5, N/T) STRENGTH RIGHT LEFT Shoulder Abd (not part of the SUSANNAH score) 4 5 Elbow Flexors 4 5 Elbow Extensor 4 5 Wrist Dorsiflexors 4 5 Finger Abductor 4 5 Cheese Processor 4 5 Hip Flexor (Not part of SUSANNAH Motor score) 5 5 Knee Flexor 5 5 Knee Extensor 5 5 Ankle dorsiflexor 5 5 Ankle plantarflexion 5 5 Extensor hallucis 5 5 REFLEXES(0-4/2, NT) RIGHT LEFT Upper Extremities 2 2 Lower Extremities 2 2 Pathological Reflexes RIGHT LEFT Vazquez's Absent Absent Clonus Absent Absent Babinski Absent Absent # Indicates mechanical impairment Muscle appearance: Symmetrical, without signs of atrophy or dystrophy. Rectal Tone:Deferred Sensory system (0-4, N/T) Test type RU NOÉ RL LL Joint-Position 2 2 2 2 Vibration 2 2 2 2 Pain & LT sense 2 2 2 2 Dermatomal Deficit: C3-C4 C3-C4 None None Gait and Functional Evaluation: Ambulatory aids: Independent Romberg's test: Intact bilaterally Toe heel walk / heel-toe walk intact while maintaining satisfactory balance? yes Squatting/straightening w/o assistance to a min of 60 degree knee flexion? yes Single leg stance: intact Trendelenburg sign negative bilaterally Hand and finger dexterity intact bilaterally? No Disdiadochokinesis examination negative bilaterally? yes RADIOGRAPHIC STUDIES: XRay 5 views taken on 02/21/22 at [facility]: Images reviewed in the office and demonstrate post surgical changes s/p C4-7 ACDF with hardware in good position with reasonable space and fusion noted. Straight cervical spine noted with minimal lordosis however. Ther is ASD of C3- 4 noted with disc height loss, anterior listhesis C3-4 Grade I as well as spondylosis. No fracture. C0-1 and C1-2 stable through motion. No lesions noted. CT scan from11/04/2021 at [facility] Cervical Spine: This is reviewed and demonstrates that fusion is more limited than plain films show. there is minimal fusion noted with no evidence of hardware loosening. There is poor posterior decompression noted with posterior disc osteophyte complexes still in place. There is flat cervical spine with minimal lordosis. There is ASD of C3-4 with disc height loss, degeneration, osteophytes, sclerosis and facet arthrosis noted. There is bony stenosis noted as well from C3-7. There is no instability of C0-1 or C1-2 noted at this time. No lesions. No fractures. MRI without contrast from 04/04/2022 at [facility] of the Lumbar Spine demonstrates: Metal artifact present due to previous ACDF. There is residual stenosis noted C3-7 with mild central and b/l foraminal stenosis. There is severe facet arthrosis noted with likely incomplete fusion of C4-5 and C6-7. There is good fusion noted C5-6. There is adjacent segment disease noted C3-4 with disc collapse, height collapse and osteophytic changes. There are no fractures or lesions noted. C0-1 and C1-2 appear stable. There is grade I listhesis of C7 on T1 noted. IMPRESSION: It was my pleasure to have seen and examined Nataliya. I reviewed the patient's clinical syndrome, physical findings, and imaging studies during the appointment today. It is my impression that the patient has a diagnosis of. 1. S/P C4-C7 ACDF 2. C3-C4 Adjacent Segment Disease 3. Right shoulder pain 4. Right upper extremity weakness 5. RUE radiculopathy 6. Pseudoarthrosis C4-C5, C6-C7 7. Bilateral upper extremity paraesthesias 8. C3-C7 stenosis .DX:Diagnosis: Cervical spondylosis : ICD10 = M47.812 / ICD9 = 721.0 / SNOMED = 170297007 .DX:Diagnosis: Cervical spine disorder : ICD10 = M53.82 / ICD9 = 723.9 / SNOMED = 770208605 .DX:Diagnosis: Right cervical radiculopathy : ICD10 = G54.2 / SNOMED = [id number] I outlined the natural course history without intervention and various interventional options. PLAN: Based on my findings I suggest the following course of action: -I discussed treatment options with the patient, including operative and non- operative options, and they have elected to proceed with the following surgical procedure: cervical(C2-T2) Decompression and Fusion The indications, risks, benefits, and alternatives to surgery were discussed with the patient at length. Specifically (but not limited to) the risks of infection, stiffness, recurrence of symptoms, need for revision surgery, local numbness, neurovascular injury, and blood clots were discussed. The patient's questions were answered. The decision to proceed was made. Consent will be obtained for the procedure. Patient has had continued symptoms since the time of her last surgery in the form of a C4-C7 ACDF that has not provided her any relief. She has continued to have severe debility due to her symptoms which have increased from the time of the last appointment. The planned operation in the form of a C2-T2 decompression and fusion as further stabilization is required for how much decompression the patient will require. Furthermore the patient has significant defect mechanically and has compression of her cervical nerve roots causing weakness and dermatomal deficits. Overall her daily functionality is very limited due to the severity of her cervical symptoms. Spine Surgery Risk Review Ms. Page is presenting for evaluation of cervical pain and right upper extremity radiculopathy. It was my pleasure to have seen and examined Ms. Page. In our visit today we have had a chance to go over subjective complaints, physical examination findings and treatments including the natural course history without intervention and various interventional options. The patients imaging demonstrates: XRay 5 views taken on 02/21/22 at [facility] Sp[facility]: Images reviewed in the office and demonstrate post surgical changes s/p C4-7 ACDF with hardware in good position with reasonable space and fusion noted. Straight cervical spine noted with minimal lordosis however. Ther is ASD of C3- 4 noted with disc height loss, anterior listhesis C3-4 Grade I as well as spondylosis. No fracture. C0-1 and C1-2 stable through motion. No lesions noted. CT scan from11/04/2021 at [facility] Cervical Spine: This is reviewed and demonstrates that fusion is more limited than plain films show. there is minimal fusion noted with no evidence of hardware loosening. There is poor posterior decompression noted with posterior disc osteophyte complexes still in place. There is flat cervical spine with minimal lordosis. There is ASD of C3-4 with disc height loss, degeneration, osteophytes, sclerosis and facet arthrosis noted. There is bony stenosis noted as well from C3-7. There is no instability of C0-1 or C1-2 noted at this time. No lesions. No fractures. MRI without contrast from 04/04/2022 at [facility] of the Lumbar Spine demonstrates: Metal artifact present due to previous ACDF. There is residual stenosis noted C3-7 with mild central and b/l foraminal stenosis. There is severe facet arthrosis noted with likely incomplete fusion of C4-5 and C6-7. There is good fusion noted C5-6. There is adjacent segment disease noted C3-4 with disc collapse, height collapse and osteophytic changes. There are no fractures or lesions noted. C0-1 and C1-2 appear stable. There is grade I listhesis of C7 on T1 noted. On physical exam, Ms. Page demonstrates severely restricted cervical ROM due to pain that is impacting her ability to complete functional examination. Patient does also demonstrate right upper extremity radiculopathy with weakness among all major muscle groups. The patient does also demonstrate bilateral C3-C4 dermatomal deficits. Overall her functionality has continued to decline since the time of the last appointment and is very debilitated. I have explained to the patient that as their condition progresses it will cause further neurological deficits and eventual paralysis. Based on the patients imaging, physical exam, and the rapid progression and disabling nature of their symptoms, at this time I recommend surgery in the form or a: v. I discussed the risk and benefits of this procedure at length with Ms. Page. The patient agreed to considered pursuing the procedure abovementioned. Prior to surgery, she should follow up with her PCP (Cardio, ID, IM etc) for clearance. Questions were invited and answered, and the patient wishes to proceed as outlined below. Currently, I am recommendin.cervical(C2-T2) Decompression and Fusion 2.Follow up with PCP for surgical clearance 3.Review of surgical risks and benefits as well as an educational packet on the proposed surgical procedure. Risks: All surgical procedures come with inherent risks, including those related to positioning, anesthesia, intraoperative findings, and postoperative complications. It is important to understand that surgery does not come with any guarantee of a successful outcome as complications and adverse events are always possible. The patient was given a handout in office today discussing the surgical procedure and risks associated with the intervention, both of which were discussed with the patient. These risks include but are not limited to the following: * Experiencing same, different or even worse symptoms in back, neck, arms, or legs compared to before surgery. Requiring further surgery or other forms of treatment presently or at some time in the future at same or other levels of the intended spine surgery. On an extreme but fortunately relatively rare basis severe complication such as blindness, stroke, heart attack, temporary and/or permanent nerve injury, paralysis, coma, or may occur, sometimes without known explanation. Surgical complications may include but are not limited to risk of infection, fluid accumulation in the surgical dissection site, including a seroma or hematoma, that requires additional surgery, wound drainage, bleeding, new numbness or weakness, vision changes/loss, spinal fluid leakage, non-healing and/or infected incision, headaches, difficulty or inability to swallow, hoarseness, hemopneumothorax, pneumothorax, impotence, retrograde ejaculation, vaginal dryness; injury to nerves, spinal cord, blood vessels, lymphatics or other vital organs (i.e., bowel injury, injury to the great vessels); heterotopic bone formation; complications related to the hardware such as screws, rods, cages including misplaced hardware, device failure, instrumentation at the wrong spine level, hardware fracture/breakage, or hardware loosening; vertebral failure of the spinal column above or below the newly placed hardware; retained surgical instrumentations or devices and the need for further surgery. * Medical risks of the planned spine surgery include but are not limited to generalized Infections to the whole body or local areas outside of the surgical site (sepsis), heart attack, bleeding, anaphylaxis, meningitis, seizure, epilepsy, hearing loss, burn bennett, laceration of the head or other areas of the body, bruising, hypersensitivity of the skin, bladder over distension; allergic reaction; shoulder injury related to positioning; fat, blood and air clots to other areas of the body like heart, lungs, brain; failure of internal organs such as lungs, kidneys, liver and excessive bleeding. If blood transfusions are necessary, note that transfusions may cause intolerance reactions such as anaphylaxis or other complex reactions. Despite best efforts, the results of spine surgery might not heal in terms of bone, soft tissues such as skin, fascia, ligaments, and joints. Additionally, in order to achieve best possible results, spine surgery may be carried out beyond the initially planned levels and involve decompression, fusion including insertion of hardware at levels other than the original intended area of surgical interest change some portions of the procedure in order to ensure the best possible outcomes. With spine surgery and spinal fusion, there are different off label uses of instrumentation (devices, implants and hardware) as well as biological substances (bone morphogenic proteins, demineralized bone matrix) as well as using extra bone from allograft sources (i.e. cadaver bone) or autograft (iliac crest bone, ribs, or the spine itself). The patient has been given information about these practices and their inherent risks and benefits. [facility] is an educational center that serves as a training facility for neurosurgical and orthopedic [employer] and Nursing students. Physician assistants are medically trained surgical providers who function in the outpatient, inpatient, and operating room setting under the direct supervision of the attending surgeon. [facility] has multiple operating rooms with single and overlapping rooms running daily. They currently function under the required guidelines as produced by the [facility] Finance Committee with regards to the overlapping rooms and will continue to comply with changes to this policy as they occur. The requirements include and are complied with as follows: (1) the critical portions of the overlapping rooms will not occur at the same time, (2) the attending physician will be physically present during the critical portions of the procedure and immediately available during the entire case, and (3) a back-up attending is designated should the primary attending not be immediately available. The patient has had a chance to review all the listed information, has been given print outs detailing this information, and has had all his/her questions answered to their satisfaction. It was my pleasure to have seen and examined Ms. Page. In our visit today we have had a chance to go over my understanding of our patient's current condition, the natural course history without intervention and various interventional options. Questions were invited and answered, and the patient wishes to proceed as outlined above. I have seen and examined the patient for 25 minutes and we have spent more than 50% of the time in repeat and detailed counseling about the patient's condition, its natural course history with out and as much as can be predicted with surgery and re-review of various surgical treatment options. In conclusion, Ms. Page requested we proceed with the above suggested surgery and are willing to accept risks and limitations of the suggested surgery as nature of the disease process and our best attempts at treatment for the condition. Thank you again for allowing us to be part of your patient's care. Please don't hesitate to contact me if you have any further questions. Signed and authenticated by: graphic Follow- up: 1 week pre-op Patient Education: (Informational booklet, instructions, etc) given at today's appointment: Yes .ED:Patient Education: Y Plan at next visit: review MRI, EMG, and progress Medications Reviewed: YES In our visit today Ms. Page and I have had a chance to go over my understanding of the patient's current condition, the natural course history without intervention and various interventional options. Questions were invited and answered, and the patient wishes to proceed as outlined above. I will be sure to keep you updated afterMsAmina Page returns here for further follow-up. Thank you again for your referral. Please do not hesitate to contact me if you have any further questions. Signed and authenticated by: Jayden Ceballos [facility] [address] [place] [id number] Code: Level 5 This message is confidential, intended only for the named recipient(s) and may contain information that is privileged or exempt from disclosure under applicable law. If you are not the intended recipient(s), you are notified that the dissemination, distribution or copying of this information is strictly prohibited. If you received this message in error, please notify the sender then delete this message. Patient verbalizes understanding of the information discussed. The above note was initiated by Jayden Comer, physician recording switchboard operator assistant for Dr. Jayden Zelaya. This note has been reviewed by Dr. Zelaya, who has made his personal changes and impressions for this document. CC: Sai Garvey M.D. # SIGNED BY Jayden Zelaya (GOO)11/03/2022 09:25AM Past Medical History Past Medical History: Hyperlipidemia, Hypertension Additional Past Medical History / Comment(s): Arthitis , History of Any Multi-Drug Resistant Organisms: None Reported Past Surgical History: Bowel Resection, Cholecystectomy, Hysterectomy, Or thopedic Surgery Additional Past Surgical History / Comment(s): states had "18 inches of colon removed r/t twisted bowel" rt ankle plate and screws, rt foot screw, anterior d/ f c4/5/6/7 on 05/30/20/ c4-7 neck fusion Past Anesthesia/Blood Transfusion Reactions: No Reported Reaction Additional Past Anesthesia/Blood Transfusion Reaction / Comment(s): PT STATES "I WAS TOLD i QUIT BREASTHING DURING CHOLECYSTECTOMY" ABOUT 10 YEARS AGO. HAS HAD ANESTHESIA SINCE WITH NO PROBLEMS Smoking Status: Never smoker - Past Family History Mother Family Medical History: No Reported History Additional Family Medical History / Comment(s): still living in good health Medications and Allergies Home Medications Medication Instructions Recorded Confirmed Type Naproxen 500 mg PO HS 01/02/20 12/30/22 History Sertraline [Zoloft] 100 mg PO HS 01/02/20 12/30/22 History Zolpidem [Ambien] 10 mg PO HS PRN 01/02/20 12/30/22 History Gabapentin [Neurontin] 600 mg PO TID 05/24/20 12/30/22 History busPIRone HCL [Buspirone HCl] 5 mg PO AC-LUNCH 11/13/22 12/30/22 History methocarbamoL [Methocarbamol] 500 mg PO BID 11/13/22 12/30/22 History HYDROcodone/APAP 10-325MG [[place] 1 tab PO TID PRN 12/30/22 12/30/22 History 10-325] Allergies Allergy/AdvReac Type Severity Reaction Status Date / Time Sulfa (Sulfonamide Allergy Rash/Hives Verified 12/30/22 15:13 Antibiotics) Physical Examination Osteopathic Statement: *. No significant issues noted on an osteopathic structural exam other than those noted in the History and Physical/Consult.
[2023-01-02] MEDS ORDERED: HYDROmorphone (PF) 1 MG/ML ONE (13:43)
[2023-01-02] MEDS ORDERED: SODIUM CHLORIDE 0.9% 100 ML BAG ONE (13:43)
[2023-01-02] MEDS ORDERED: TRANEXAMIC ACID IN NACL,ISO-OS 1,000 MG/100 ML BAG ONE (13:43)
[2023-01-02] MEDS ORDERED: ROCURONIUM 10 MG/ML (5 ML VIAL) IV ONE (13:43)
[2023-01-02] MEDS ORDERED: PROPOFOL 10 MG/ML 20 ML VIAL IV ONE (13:43)
[2023-01-02] MEDS ORDERED: SUCCINYLCHOLINE CHLORIDE 200 MG/10 ML VIAL IV ONE (13:43)
[2023-01-02] MEDS ORDERED: ceFAZolin 1,000 MG VIAL ONE (13:43)
[2023-01-02] MEDS ORDERED: fentaNYL (PF) 50 MCG/ML 2 ML AMP ONE (13:43)
[2023-01-02] MEDS ORDERED: BUPIVACAIN-EPI 0.25%-1:200,000 30 ML VIAL SQ ONE (13:43)
[2023-01-02] MEDS ORDERED: THROMBIN (BOVINE) 5,000 UNIT VIAL TOPICAL ONE (13:43)
[2023-01-02] MEDS ORDERED: MIDAZOLAM 2 MG/2 ML VIAL ONE (13:43)
[2023-01-02] MEDS ORDERED: GELATIN SPONGE,ABSORB (LARGE) 1 EACH SPONGE TOPICAL ONE (13:43)
[2023-01-02] MEDS ORDERED: LIDOCAINE 2% INJ 20 MG/ML (2 ML VIAL) ONE (13:43)
[2023-01-02] MEDS ORDERED: VANCOMYCIN 1,000 MG VIAL MISCELLANE ONE (16:07)
--- NOTE | 2023-01-02 16:11 | XR ---
Intraoperative/procedural fluoroscopic services were provided for C2-T2 fusion. Hardware appears inta ct. Total fluoroscopy time is 55.6 seconds with a total of 8 submitted images to PACS. Total DAP 1.06 55 Gycm2. Please see the operative note for further details.
[2023-01-02] MEDS ORDERED: LACTATED RINGERS 1,000 ML IV ONE (16:32)
[2023-01-02] MEDS ORDERED: ONDANSETRON 4 MG/2 ML VIAL IVP ONE (16:50)
[2023-01-02] MEDS ORDERED: HYDROmorphone 0.5 MG/0.5 ML SYRINGE IVP ONE ×6 (17:00→18:00)
[2023-01-02] MEDS ORDERED: ENALAPRILAT 1.25 MG/ML 1 ML VIAL IVP ONE ×4 (17:15→17:25)
[2023-01-02] MEDS ORDERED: SENNOSIDES-DOCUSATE SODIUM 1 EACH TAB PO PRN (17:39)
[2023-01-02] MEDS ORDERED: MAGNESIUM HYDROXIDE 2,400 MG/10 ML CUP PO PRN (17:39)
[2023-01-02] MEDS ORDERED: hydrALAZINE HCL 20 MG/ML 1 ML VIAL IVP ONE (17:45)
[2023-01-02] MEDS: ACETAMINOPHEN TAB 500 MG TAB PO SCH ×2 (19:58→23:54)
[2023-01-02] MEDS: GABAPENTIN 300 MG CAP PO SCH (19:58)
[2023-01-02] MEDS: HYDROmorphone 0.5 MG/0.5 ML SYRINGE IVP PRN (22:03)
[2023-01-03] MEDS ORDERED: ONDANSETRON 4 MG/2 ML VIAL IVP PRN (00:57)
[2023-01-03] MEDS: HYDROmorphone 1 MG/ML 1 ML SYRINGE IVP PRN ×2 (01:04→04:03)
[2023-01-03] MEDS: CYCLOBENZAPRINE 5 MG TAB PO PRN ×3 (02:52→20:40)
[2023-01-03] MEDS ORDERED: SCOPOLAMINE 1 MG/72 HR PATCH TRANSDERM SCH (04:00)
[2023-01-03] MEDS: METOCLOPRAMIDE 5 MG/ML 2 ML VIAL IVP PRN ×2 (04:03→15:23)
[2023-01-03] MEDS: LACTATED RINGERS 1,000 ML IV SCH (05:43)
[2023-01-03] MEDS: ACETAMINOPHEN TAB 500 MG TAB PO SCH ×3 (05:43→18:25)
[2023-01-03] MEDS ORDERED: METOCLOPRAMIDE 5 MG/ML 2 ML VIAL IVP SCH (06:00)
[2023-01-03] MEDS: HYDROcodone/APAP 10-325MG 1 EACH TAB PO PRN ×2 (06:48→12:41)
[2023-01-03] MEDS: ONDANSETRON 4 MG/2 ML VIAL IVP PRN ×2 (06:48→11:13)
--- NOTE | 2023-01-03 09:45 | P.PN ---
Subjective Progress Note Date: 01/03/23 Principal diagnosis: Status post C2-T1 decompression with posterior lateral fusion Patient has been evaluated at bedside this morning, she remains an is. I was cut multiple times through the night due to vomiting and nausea. We have adjusted goals and nausea medications and pain medications. Patient's home medications and not been reordered at this time. She does admit to discomfort in the posterior neck and attempts of the shoulders. She feels that these/strength of the right upper extremity is improved since the surgery. Currently he denies any headaches, lightheadedness, chest pain or shortness of breath. Objective - Vital Signs Vital signs: Vital Signs Temp 97.8 F 01/03/23 07:24 Pulse 97 01/03/23 07:24 Resp 18 01/03/23 07:24 BP 169/99 01/03/23 07:24 Pulse Ox 95 01/03/23 07:24 FiO2 Intake & Output 01/02/23 01/03/23 01/03/23 18:59 06:59 18:59 Intake Total 2600 Output Total 425 1160 Balance 2175 -1160 Weight 76.1 kg Intake: IV 2600 Output: Drainage 160 Neck 160 Urine 350 1000 Uretheral (Sauer) 400 Estimated Blood Loss 75 Other: Voiding Method Indwelling Catheter - Exam Gen: AOx3, NAD VSS stable at this time Integument: Postoperative dressings in good position and condition, no active drainage visualized. The drain remains in place at this time, 160 mL of fluid noted overnight Palpation: Mild tenderness with palpation noted to the paraspinal and midline region of the posterior cervical spine. ROM: Full range of motion in all major muscle groups of the bilateral upper and lower extremities, no focal deficits appreciated Sensory Exam: Senory exam to light touch is intact C5-T1 Senosry exam to light touch is intact L2-S1 Motor: 5-5 strength appreciated in the bilateral lower extremities with hip flexion, knee extension, knee flexion, plantar flexion, dorsiflexion, EHL, FHL 4-/5 strength appreciated in the right upper shoulder elevation, shoulder abduction, elbow extension, elbow flexion, wrist extension, wrist flexion, piece marker small arms 4/5 strength appreciated in the left upper extremity with shoulder elevation, shoulder abduction, elbow extension, elbow flexion, wrist extension, wrist flexion, piece marker small arms Reflexes: 2/4 in all UE and LE Negative Leeanna's bilaterally Negative clonus bilaterally Assessment and Plan Assessment: Postoperative day #1 status post C2-T1 decompression with posterior lateral fusion Plan: Pain control, discussed the patient today that we need to adjust medications to help prevent nausea and vomiting. Advised patient that she will likely be a little bit of increased pain until nearly get the nausea under control before deciding which pain medication as best abuse. We have restarted her [place] 10 mg/325 mg, oxycodone has been discontinued. Continued 10 nausea medication Continue IV fluids at this time Continue use of rigid c-collar Drain to remain in place at this time, likely remove on 01/04/2023. Will change dressing at that time also Encourage incentive spirometer No bending, lifting, twisting Discussed with nursing the need to reach out to the primary care doctor with regards to her blood pressure and medications. They are unable to get ahold of the primary care I advised contacting anesthesia or the [facility] DVT prophylaxis, continue use of JEANIE hose and compression stocking We will continue to follow during inpatient stay Time with Patient: Less than 30
[2023-01-03 09:47] LABS: African American GFR (CKD) 103.4 (60.0-200.0); Anion Gap 10.9 mmol/L (10.00-18.00); BUN/Creat Ratio 11.73 Ratio (12.00-20.00); Blood Urea Nitrogen 8.3 mg/dL (9.0-27.0); Calcium 8.8 mg/dL (8.7-10.3); Non-African American GFR(CKD) 89.2 (60.0-200.0)
[2023-01-03 09:50] LABS: Basophils # (A) 0.05 X 10*3/uL (0.00-0.10); Basophils % (A) 0.4 %; Eosinophils # (A) 0 X 10*3/uL (0.04-0.35); Eosinophils % (A) 0 %; HCT 32.8 % (37.2-46.3); HGB 10.8 g/dL (12.0-15.0); Immature Grans, Automated 0.4 %; Lymphocytes # (A) 1.09 X 10*3/uL (0.90-5.00); MCH 30.3 pg (27.0-32.0); MCHC 32.9 g/dL (32.0-37.0); MCV 91.9 fL (80.0-97.0); Mean Platelet Volume 11.2 fL (9.5-12.2); Monocytes # (A) 0.96 X 10*3/uL (0.20-1.00); Monocytes % (A) 7.9 %; NRBC Per 100 WBC 0 /100 WBCS (0.0-0.0); Neutrophils # (A) 9.99 X 10*3/uL (1.80-7.70); Neutrophils % (A) 82.3 %; Platelet Count 293 X 10*3/uL (140-440); RBC 3.57 X 10*6/uL (4.10-5.20); RDW 12.7 % (11.5-14.5); WBC 12.14 X 10*3/uL (4.50-10.00)
[2023-01-03] MEDS: GABAPENTIN 300 MG CAP PO SCH ×3 (09:58→21:16)
[2023-01-03] MEDS: busPIRone HCl 5 MG TAB PO SCH (11:13)
[2023-01-03] MEDS ORDERED: hydrALAZINE HCL 20 MG/ML 1 ML VIAL IVP PRN (15:17)
[2023-01-03] MEDS: HYDROmorphone 0.5 MG/0.5 ML SYRINGE IVP PRN (15:23)
[2023-01-03] MEDS ORDERED: PANTOPRAZOLE 40 MG/10 ML VIAL IVP ONE (16:25)
[2023-01-03] MEDS: amLODIPine 5 MG TAB PO SCH (16:30)
[2023-01-03] MEDS ORDERED: LORazepam 2 MG/ML INJ IV PRN (16:37)
[2023-01-03] MEDS ORDERED: SUCRALFATE 1 GM TAB PO PRN (16:40)
[2023-01-03] MEDS: PANTOPRAZOLE 40 MG/10 ML VIAL IVP SCH (20:37)
[2023-01-03] MEDS: SERTRALINE 100 MG TAB PO SCH (21:16)
[2023-01-03] MEDS: ZOLPIDEM 5 MG TAB PO PRN (21:54)
--- NOTE | 2023-01-03 22:06 | CT ---
EXAMINATION TYPE: CT cervical spine wo con DATE OF EXAM: 01/03/2023 COMPARISON: 11/04/2021 HISTORY: post cervical fusion CT DLP: 355.8 mGycm Automated exposure control for dose reduction was used. Images obtained from the skull base to T1 vertebra with no contrast. There is plate with screws fusing anteriorly the cervical spine from the level of C4-C7. There is pos terior rods and screws fusing the cervical spine from the level of C2-T1. There is posterior multilev el laminectomy defect. There is air bubbles at the surgery site in the soft tissues at the laminectom y levels. There are posterior skin bertin. No focal bone destruction. No evidence of cervical parasp inal mass. IMPRESSION: Multilevel posterior fusion surgery is a change compared to old exam. Postsurgical changes but no def inite complicating process.
--- NOTE | 2023-01-03 23:12 | CONS ---
CONSULTATION HISTORY OF PRESENT ILLNESS: A 67-year-old white female, status post cervical fusion. Medical management consult. She has had hypertension issues today. We would have to give her hydralazine through the IV and now amlodipine 5 mg a day. Complaining of epigastric severe pain, worse with palpation, suspicious for like GERD or NSAID gastritis from a lot of pain medicine. Ordered Protonix 40 IV q.12 as she has failed Zofran and other nausea medicines including scopolamine patch to get her blood pressure under control, give her anxiety medicines, give her antinausea medicines, GERD medicines to see how she does, control her blood pressure with hydralazine. Currently, the blood pressure is 170/70, pulse is 85. She appears anxious, nervous. Psych, she appears very light and a lot of pain and she has nausea. Home medicines were reviewed and restarted. PAST SURGICAL HISTORY: Reviewed. PAST MEDICAL HISTORY: Reviewed. REVIEW OF SYSTEMS: Otherwise negative. PHYSICAL EXAMINATION: VITAL SIGNS: Reviewed as mentioned above. CARDIOVASCULAR: S1, S2. LUNGS: Clear. GI: Tenderness to palpation in epigastric. HEMATOLOGY: Negative Homans. PSYCH: Poor mood and affect. OPHTHALMOLOGIC: Pupils equal, round, reactive. PLAN: Continue amlodipine for blood pressure, hydralazine for blood pressure p.r.n. for a systolic over 160. PPIs for nausea. Continue with Zofran and scopolamine patch. Carafate will be added and topical Protonix as needed for GI upset. BuSpar is given for anxiety. She is on broad-spectrum antibiotics, Ativan p.r.n. for anxiety. Prognosis guarded. Please see further orders. MMODL / IJN: [id number] /
[2023-01-04] MEDS: ACETAMINOPHEN TAB 500 MG TAB PO SCH ×2 (01:12→05:47)
[2023-01-04] MEDS: HYDROcodone/APAP 10-325MG 1 EACH TAB PO PRN ×5 (02:55→20:50)
[2023-01-04] MEDS: CYCLOBENZAPRINE 5 MG TAB PO PRN ×2 (05:15→15:18)
[2023-01-04] MEDS: LACTATED RINGERS 1,000 ML IV SCH ×2 (05:15→18:25)
[2023-01-04] MEDS: GABAPENTIN 300 MG CAP PO SCH ×3 (08:13→21:47)
[2023-01-04] MEDS: PANTOPRAZOLE 40 MG/10 ML VIAL IVP SCH ×2 (08:13→20:50)
[2023-01-04] MEDS: amLODIPine 5 MG TAB PO SCH (08:13)
[2023-01-04] MEDS ORDERED: ACETAMINOPHEN TAB 325 MG TAB PO PRN (10:31)
[2023-01-04 10:56] LABS: Basophils # (A) 0.06 X 10*3/uL (0.00-0.10); Basophils % (A) 0.6 %; Eosinophils # (A) 0.04 X 10*3/uL (0.04-0.35); Eosinophils % (A) 0.4 %; HCT 32.5 % (37.2-46.3); HGB 10.9 g/dL (12.0-15.0); Immature Grans, Automated 0.2 %; Lymphocytes # (A) 1.28 X 10*3/uL (0.90-5.00); Lymphocytes % (A) 12.1 %; MCH 30.4 pg (27.0-32.0); MCHC 33.5 g/dL (32.0-37.0); MCV 90.8 fL (80.0-97.0); Monocytes # (A) 1.11 X 10*3/uL (0.20-1.00); Monocytes % (A) 10.5 %; NRBC Per 100 WBC 0 /100 WBCS (0.0-0.0); Neutrophils # (A) 8.11 X 10*3/uL (1.80-7.70); Neutrophils % (A) 76.2 %; Platelet Count 270 X 10*3/uL (140-440); RBC 3.58 X 10*6/uL (4.10-5.20); RDW 12.7 % (11.5-14.5); WBC 10.62 X 10*3/uL (4.50-10.00)
[2023-01-04 11:03] LABS: African American GFR (CKD) 110.1 (60.0-200.0); Albumin 3.7 g/dL (3.8-4.9); Albumin/Globulin Ratio 1.83 (1.60-3.17); BUN/Creat Ratio 11.97 Ratio (12.00-20.00); Blood Urea Nitrogen 7.2 mg/dL (9.0-27.0); Calcium 8.7 mg/dL (8.7-10.3); Carbon Dioxide 27.5 mmol/L (20.0-27.5); Potassium 3.5 mmol/L (3.5-5.5); Total Bilirubin 0.5 mg/dL (0.30-1.20); Total Protein 5.8 g/dL (6.2-8.2)
[2023-01-04] MEDS: SENNOSIDES-DOCUSATE SODIUM 1 EACH TAB PO SCH (12:26)
[2023-01-04] MEDS: busPIRone HCl 5 MG TAB PO SCH (12:26)
--- NOTE | 2023-01-04 12:33 | P.PN ---
Subjective Progress Note Date: 01/04/23 Principal diagnosis: Status post C2-T1 decompression with posterior lateral fusion Patient has been evaluated at bedside this morning, patient is doing a lot better today. The nausea has seemed to improve significantly. She increasing her diet as tolerated. She continues to utilize the rigid c-collar. Pain is manageable at this time with current medications. She is very eager to have the urinary catheter removed so she can begin ambulating. she currently denies headaches, lightheadedness, chest pain, shortness of breath, nausea or vomiting. Objective - Vital Signs Vital signs: Vital Signs Temp 98.4 F 01/04/23 07:02 Pulse 81 01/04/23 07:02 Resp 15 01/04/23 07:02 BP 148/85 01/04/23 07:02 Pulse Ox 94 L 01/04/23 08:31 FiO2 Intake & Output 01/03/23 01/04/23 01/04/23 18:59 06:59 18:59 Output Total 2400 2080 Balance -2400 -208 Output: Drainage 130 Neck 130 Urine 2400 1950 Uretheral (Sauer) 1200 1550 Other: Voiding Method Indwelling Catheter Indwelling Catheter - Exam Gen: AOx3, NAD VSS stable at this time Integument: Postoperative dressings in good position and condition, no active drainage visualized. drain remains in place at this time Palpation: Mild tenderness with palpation noted to the paraspinal and midline region of the posterior cervical spine. ROM: Full range of motion in all major muscle groups of the bilateral upper and lower extremities, no focal deficits appreciated Sensory Exam: Senory exam to light touch is intact C5-T1 Senosry exam to light touch is intact L2-S1 Motor: 5-5 strength appreciated in the bilateral lower extremities with hip flexion, knee extension, knee flexion, plantar flexion, dorsiflexion, EHL, FHL 4-/5 strength appreciated in the right upper shoulder elevation, shoulder abduction, elbow extension, elbow flexion, wrist extension, wrist flexion, oyster fisherman 4/5 strength appreciated in the left upper extremity with shoulder elevation, shoulder abduction, elbow extension, elbow flexion, wrist extension, wrist flexion, oyster fisherman Reflexes: 2/4 in all UE and LE Negative Leeanna's bilaterally Negative clonus bilaterally - Labs CBC & Chem 7: 01/04/23 07:24 01/04/23 07:24 Labs: Abnormal Lab Results - Last 24 Hours (Table) 01/04/23 01/04/23 Range/Units 07:24 07:24 WBC 10.62 H (4.50-10.00) X 10*3/uL RBC 3.58 L (4.10-5.20) X 10*6/uL Hgb 10.9 L (12.0-15.0) g/dL Hct 32.5 L (37.2-46.3) % Neutrophils # 8.11 H (1.80-7.70) X 10*3/uL Monocytes # 1.11 H (0.20-1.00) X 10*3/uL Sodium 132 L (135-145) mmol/L Anion Gap 8.00 L (10.00-18.00) mmol/L BUN 7.2 L (9.0-27.0) mg/dL BUN/Creatinine Ratio 11.97 L (12.00-20.00) Ratio Glucose 113 H (70-110) mg/dL Total Protein 5.8 L (6.2-8.2) g/dL Albumin 3.7 L (3.8-4.9) g/dL Assessment and Plan Assessment: Postoperative day #2 status post C2-T1 decompression with posterior lateral fusion Plan: Pain control, continue current medication Continue use of rigid c-collar Leave drain in place for 1 additional night, plan for removal and bandage change on 01/05/2023 Encourage incentive spirometer No bending, lifting, twisting DVT prophylaxis, continue use of JEANIE hose and compression stocking Weight-bear as tolerated, utilize walker or cane for ambulation Medical recommendations Discharge planning: Anticipate discharged home on 01/05/2023 Time with Patient: Less than 30
[2023-01-04] MEDS: HYDROmorphone 0.5 MG/0.5 ML SYRINGE IVP PRN (18:21)
[2023-01-04] MEDS: SERTRALINE 100 MG TAB PO SCH (20:50)
[2023-01-04 21:32] VITALS: RESP 18
[2023-01-04] MEDS: ZOLPIDEM 5 MG TAB PO PRN (21:47)
--- NOTE | 2023-01-04 23:19 | PN ---
PROGRESS NOTE SUBJECTIVE: A 67-year-old white female, appears to be doing better today. Stomach is better on Protonix b.i.d. as well as Carafate. Hypertension is better with amlodipine. Continue current treatment. OBJECTIVE: VITAL SIGNS: Her blood pressure is greatly improved. Temp 98.4, pulse 81, respiratory rate 15 to 18, saturating 94% on room air to 96% on room air. CARDIOVASCULAR: S1, S2. LUNGS: Clear. GI: Soft. CT scan of the neck was reviewed with a standard surgical protocol for postop. Continue current treatments for hypertension, GERD, etc. Prognosis is guarded, but improved. She is doing better today. MMODL / IJN: [id number] /
[2023-01-05] MEDS: HYDROcodone/APAP 10-325MG 1 EACH TAB PO PRN ×4 (00:37→13:36)
[2023-01-05 04:14] VITALS: TEMP 98.2
[2023-01-05] MEDS: LACTATED RINGERS 1,000 ML IV SCH (05:10)
--- NOTE | 2023-01-05 07:54 | P.PN ---
Subjective Progress Note Date: 01/05/23 Principal diagnosis: 1. S/P C4-C7 ACDF 2. C3-C4 Adjacent Segment Disease 3. Right shoulder pain 4. Right upper extremity weakness 5. RUE radiculopathy 6. Pseudoarthrosis C4-C5, C6-C7 7. Bilateral upper extremity paraesthesias 8. C3-C7 stenosis Patient seen and examined this morning. Patient was resting comfortably in bed. Surgical dressing has been changed and Hemovac removed. Patient has been ambulatory within room to restroom and tolerating activity well. She does have complaint of tenderness to the left lateral region of her cervical spine. She does report her pain is managed on current regimen. Patient is looking forward to being discharged home today. She has been afebrile, denies nausea/vomiting, or chest pain. Objective - Vital Signs Vital signs: Vital Signs Temp 98.2 F 01/05/23 02:35 Pulse 92 01/05/23 02:35 Resp 18 01/05/23 02:35 BP 115/78 01/05/23 02:35 Pulse Ox 94 L 01/05/23 02:35 FiO2 Intake & Output 01/04/23 01/05/23 01/05/23 18:59 06:59 18:59 Intake Total 900 770 Output Total 580 15 Balance 320 755 Intake: Intake, IV Titration 900 650 Amount Lactated Ringers 1,000 ml 900 @ 0 mls/hr IV [facility] Rx#:[id number] Lactated Ringers 1,000 ml 600 @ 75 mls/hr IV .[id number] [facility] Rx#:[id number] ceFAZolin 2 gm In Sodium 50 Chloride 0.9% 50 ml @ 100 mls/hr IVPB Q8HR [facility] Rx# :[id number] Oral 120 Output: Drainage 30 15 Neck 30 15 Urine 550 Other: Voiding Method Toilet # Voids 1 - Exam Physical Examination General: The patient is awake and alert, in no acute distress Skin: Skin is warm and dry with no obvious rashes or lesions. Surgical incision to the posterior cervical spine, incision is well approximated with bertin intact. New dressing applied this morning. Eye: Pupils are equal, round and reactive to light, extra-ocular movements are intact; there is normal conjunctiva bilaterally. Neck: The neck is supple, there is no tenderness and ROM intact. Cardiovascular: There is a regular rate and rhythm. No murmur, rub or gallop is appreciated. Respiratory: Lungs are clear to auscultation, respirations are non-labored, breath sounds are equal. Gastrointestinal: Soft, non-distended, non-tender abdomen. Back: There is no tenderness to palpation in the midline, paralumbar, parathoracic or buttocks region. There is no obvious deformity . Musculoskeletal: ROM limited secondary to pain and stiffness from surgical procedure. Muscle strength in all major muscle groups of bilateral upper extremities 4-/5, bilateral lower extremities 5/5. Neurological: CN 2-12 intact. There are no obvious motor or sensory deficits. Movement and coordination equal and intact. Sensory exam to light touch intact C5-T1 and intact from L2-S1. Reflexes 2/4 in bilateral upper and lower extremities. Negative Hoffmans, babinski, and clonus signs. Psychiatric: Cooperative, appropriate mood & affect, normal judgment. - Labs CBC & Chem 7: 01/04/23 07:24 01/04/23 07:24 Labs: Abnormal Lab Results - Last 24 Hours (Table) 01/04/23 01/04/23 Range/Units 07:24 07:24 WBC 10.62 H (4.50-10.00) X 10*3/uL RBC 3.58 L (4.10-5.20) X 10*6/uL Hgb 10.9 L (12.0-15.0) g/dL Hct 32.5 L (37.2-46.3) % Neutrophils # 8.11 H (1.80-7.70) X 10*3/uL Monocytes # 1.11 H (0.20-1.00) X 10*3/uL Sodium 132 L (135-145) mmol/L Anion Gap 8.00 L (10.00-18.00) mmol/L BUN 7.2 L (9.0-27.0) mg/dL BUN/Creatinine Ratio 11.97 L (12.00-20.00) Ratio Glucose 113 H (70-110) mg/dL Total Protein 5.8 L (6.2-8.2) g/dL Albumin 3.7 L (3.8-4.9) g/dL Assessment and Plan Assessment: Postop day 3: C2-T1 decompression with posterior lateral interbody fusion 1. S/P C4-C7 ACDF 2. C3-C4 Adjacent Segment Disease 3. Right shoulder pain 4. Right upper extremity weakness 5. RUE radiculopathy 6. Pseudoarthrosis C4-C5, C6-C7 7. Bilateral upper extremity paraesthesias 8. C3-C7 stenosis Plan: -Appreciate marine engineering consultant and team management. -Activity: Ambulate QID, OOB all meals, up and about, limit lifting bending twisting to less than 5 lbs. Use walker or cane if needed for stability. -Daily PT/OT, increase ambulation strength and balance. -Hard cervical collar on at all times, may remove to shower. -Pain control: Adequate at this time -Meds: reviewed -GI ppx: senna, Miralax -DVT PPX: OK to restart Heparin tonight -Hygiene: Shower today. Maintain dressing clean and dry. -Encourage IS 10x/hr -Dispo: Anticipate discharge home today with homecare *I reviewed and discussed this case with my attending Dr. Zelaya, whom has reviewed this chart and films and is in agreement with assessment and plan of care as outlined above. I have personally seen and examined the patient, performed the documentation and the assessment and plan as written. Number of minutes spent on the visit: 20m.
--- NOTE | 2023-01-05 08:09 | P.DS ---
Providers Date of admission: 01/02/23 11:29 Expected date of discharge: 01/05/23 Attending physician: Jayden Zelaya DO Consults: 01/02/23 17:41 Consult Physician Routine Consulting Provider: Sai Garvey Reason/Comments: medical management Do you want consulting provider notified?: Yes Primary care physician: [facility] Course: Hospital Course: The patient was evaluated preoperatively and found to have the diagnosis of C3- C4 adjacent segment disease, right upper extremity weakness, bilateral upper extremity paresthesia. They underwent appropriate preoperative care and were willing to undergo the intended procedure. They underwent a successful C2-T1 decompression with posterior lateral interbody fusion, were recovered appropriately and sent to the floor. While on the floor they worked with physical therapy, occupational therapy and nursing to enhance their recovery experience. Their pain was well controlled through their stay and they were started on appropriate medications, DVT ppx modalities, activity and dietary needs. Daily labs were monitored closely, and transfusions were only used when n ecessary. Medicine as well as other consulting services have made their input and have helped with our team approach and multidisciplinary care. PT milestones have been met and passed and they have made the recommendation of home with home care for this patient and treating providers agree with this care path. The patient will be discharged home with appropriate medications, instructions and follow-up information and in stable condition. Patient Condition at Discharge: Good Plan - Discharge Summary Discharge Rx Participant: No New Discharge Prescriptions: New Cyclobenzaprine [Flexeril] 5 mg PO TID PRN #60 tablet PRN Reason: Muscle Spasm Sennosides/Docusate Sodium [Senna Plus 8.6-50 mg Softgel] 1 each PO DAILY PRN #20 capsule PRN Reason: Constipation cefaDROXiL [Duricef] 500 mg PO Q12HR 5 Days #10 cap No Action Zolpidem [Ambien] 10 mg PO HS PRN PRN Reason: SLEEP Sertraline [Zoloft] 100 mg PO HS Naproxen 500 mg PO HS Gabapentin [Neurontin] 600 mg PO TID methocarbamoL [Methocarbamol] 500 mg PO BID busPIRone HCL [Buspirone HCl] 5 mg PO AC-LUNCH HYDROcodone/APAP 10-325MG [Purchase 10-325] 1 tab PO TID PRN PRN Reason: Pain Discharge Medication List Naproxen 500 mg PO HS 01/02/20 [History] Sertraline [Zoloft] 100 mg PO HS 01/02/20 [History] Zolpidem [Ambien] 10 mg PO HS PRN 01/02/20 [History] Gabapentin [Neurontin] 600 mg PO TID 05/24/20 [History] busPIRone HCL [Buspirone HCl] 5 mg PO AC-LUNCH 11/13/22 [History] methocarbamoL [Methocarbamol] 500 mg PO BID 11/13/22 [History] HYDROcodone/APAP 10-325MG [Purchase 10-325] 1 tab PO TID PRN 12/30/22 [History] Cyclobenzaprine [Flexeril] 5 mg PO TID PRN #60 tablet 01/05/23 [Rx] Sennosides/Docusate Sodium [Senna Plus 8.6-50 mg Softgel] 1 each PO DAILY PRN #20 capsule 01/05/23 [Rx] cefaDROXiL [Duricef] 500 mg PO Q12HR 5 Days #10 cap 01/05/23 [Rx] Follow up Appointment(s)/Referral(s): Sai Garvey MD [Primary Care Provider] - 1 Week Jayden Zelaya DO [Doctor of Osteopathic Medicine] - 2 Weeks Activity/Diet/Wound Care/Special Instructions: Spine Discharge and Recovery Instructions Medications: See medication list All medication refills should be obtained through your primary care doctor or your clinic spine surgeon. Please discuss prescription refills at your follow up appointment. Do not call the hospital for medication refills. Dressing: Leave your dressing in place for a total of 5 days post operatively. Then you may remove your dressing and leave open to air. Keep the area clean and if not able to keep area clean, then cover with sterile gauze and tape. Showering: You may shower 3 days after your procedure allowing soap and water to run over incision. Do not scrub. Do not soak. Blot dry. Follow up: Please confirm a follow up appointment with your surgeon 3 weeks post operatively. Please make an appointment to follow up with your PCP in 1-2 weeks after surgery for evaluation 3 phase, 3-week plan POST OP WEEKS 1-3 1. Lifting/carrying/pushing/pulling limited to less than 5 pounds. 2. Do not sit for longer than 15 minutes at one time. Get up and walk around. Prolonged sitting is NOT advised. If you lay down, see if you can tolerate laying down on you front (belly side) 3. Walk for periods of 15 minutes = 1 mile but no longer; do it multiple times times each day. 4. Ice your low back after activity. POST OP WEEKS 3-6 1. Lifting limited to less than 20 pounds. 2. Do not sit for longer than 30 minutes at a time. Frequently change positions. Use a sit-to stand workstation or take frequent breaks from sitting if you have returned to work. 3. Walk for 30 minutes each day. If possible, do these three or more times a day POST OP WEEKS 6+ At your 6-week appointment we will give you a physical therapy referral to focus on a core stabilization and strengthening program. You should also work on leg & buttock strengthening, hamstring & quadriceps stretching, and continue a low impact aerobic activity program such as swimming, walking, or riding a stationary bicycle. During the initial 6 weeks after your surgery, you are at the highest risk of re-injuring your spine. You should generally avoid BLTs (bending, lifting and twisting combination motions) and follow the above guidelines to reduce the chance of reinjury. You can anticipate post op appointments in our office at approximately 3 weeks and 6 weeks after your surgery. INCISION CARE: If your incision is not draining you do NOT need to cover it with a dressing. Keep your incision clean, dry and intact. In most cases, we apply skin glue, bertin or sutures to the incision at the time of surgery. This will be like a crust or have the appearance of a scab and will fall off in time on its own. The stitches or bertin need to be removed at 3 weeks post op appointment. You may begin to shower 3 days after surgery (this allows the glue to uribe well). However, please avoid scrubbing the incision site or peeling off any of the skin glue. This will ensure optimal healing of your incision. Also, during this time avoid soaking the incision area in water - this includes swimming pools, hot tubs or baths. No ointments, lotions or oils on the incision until your surgeon allows. Leave bertin, sutures or glue in place. Neurological dysfunction that comes on suddenly can also be a sign of a stroke. Below some common symptoms of a stroke are listed: B - balance difficulty such as sudden onset walking or leaning to one side - NEW E - eye problem such as sudden double vision or trouble seeing on one side - NEW F - Facial weakness or numbness on one side - NEW A - Arm or leg weakness or numbness on one side - NEW S - Slurred speech or difficulty with word finding - NEW T - Time is BRAIN! Call 911 as soon as you recognize these symptoms Diet: Consume a regular diet rich in vegetables and lean protein such as chicken or fish. You should consume in a ratio of approximately 20% fats|40% carbohydrates|40%protein. Vegetables, sweet potatoes, brown rice or quinoa are examples of good carbohydrates. Chips, white bread, cookies and sweets/sugar are examples of bad carbohydrates. Limit your bad carbs, go wild with good carbs. "Life's Simple 7" Guidelines as per [place] [employer] These will help you reclaim your life after surgery and sewing machine repairer helper in your recovery, keeping in mind your restrictions. (1) Get Active. Physical activity can help people lose weight, control high blood pressure and cholesterol, feel emotionally better, and sleep better. (2) Control Cholesterol. Avoid a diet high in saturated fat, trans fat, & cholesterol. Limit whole milk & cream, ice cream, butter, egg yolks, processed meats (like sausage and hot dogs), and fatty meats. Choose healthy foods that are low in saturated fat, trans fat and cholesterol which include: Fruits and vegetables, fiber rich grain products (like whole grain pasta and brown rice), lean meat such as chicken, fish, nuts, seeds, and legumes. (3) Eat Better. Eat small portions. Shop at the grocery with a list and do not stray from it. Tips for a healthy diet include: Limit sodium intake to less than 1500mg daily, avoid prepackaged, processed, and fast foods, choose a diet rich in fruits, vegetables, and whole grain, high fiber foods, and limit s aturated & cholesterol in your diet. (4) Manage Blood Pressure. If you have high blood pressure, you should have a cuff at home so that you can check your blood pressure regularly. Be sure you have a good cuff. An arm one is generally better than a wrist one. Bring the cuff to a doctor's appointment to validate that the measurements that your cuff are taking are accurate. Take your blood pressure twice daily when you are sitting down and relaxing. Record the numbers in a log and bring this log with you to your doctors' appointments. (5) Lose Weight if your BMI is above 25. A healthy BMI is between 19-25. To calculate Your BMI, you may use a Standard BMI Calculator on the NIH BMI website: <www.nhlbi.nih.gov/guidelines/obesity/BMI/bmicalc.htm>. Weigh oneself daily. If you are overweight, set a goal to lose weight. A pound a week loss if needed is a good target. (6) Reduce Blood Sugar. Limit foods and liquids with "added sugars." (Added sugars include sucrose, fructose, glucose, maltose, dextrose, high fructose corn syrup, corn syrup, concentrated fruit juice and honey). (7) Stop Smoking. If you smoke, quitting smoking is one of the best things that you can do for your health. Smoking increases your risk of heart attack, stroke, and peripheral vascular disease, which is a build-up of plaque in your arteries. Please discard all the cigarettes and lighters in your house. Have a plan for what you will do when you have the urge to smoke. Direct and second- hand smoke shortens your life as well as the lives of your family, friends and others around you. For your health and the health of those around you, please consider quitting! Proper Bending Body Mechanics: Maintain a wide stance with one foot slightly in front of the other. Keep your back straight. Bend utilizing the strength in your hips and knees. Do not bend at the waist. Maintain the lifted object at your waist-level close to your body. Avoid lifting weight that causes immediately pain or pain anywhere in the body afterwards. Smoking/Nicotine If there was ever one thing that you could do to increase your overall health, decrease your risk of cardiovascular problems by about 39% the second you make the choice, it is to STOP SMOKING. Your body's most instant gratification is the second you stop smoking. We have all heard the studies, read the articles but it is true, smoking is extremely bad for your overall health, and moreover it is detrimental to your bone health. Nicotine, IN ANY FORM, kills bone cells, prevents your body from healing fractures, and significantly prolongs healing after surgery. In spine surgery specifically, it increases your risk of not healing your bones to create a fusion and increases your risk of having a revision surgery due to this up to 60%. I know it is hard. I know it feels impossible. But there are ways. Take control of your life. We are here to help you through it. And when you are ready, ask us and we can direct you to help if you desire. Use the START Plan to Quit Smoking (please visit the HelpguAlfred.org website listed below for more information): S = Set a quit date. Choose a date within the next 2 weeks, so you have enough time to prepare without losing your motivation to quit. If you mainly smoke at work, quit on the weekend, so you have a few days to adjust to the change. T = Tell family, friends, and co-workers that you plan to quit. Let your friends and family in on your plan to quit smoking and tell them you need their support and encouragement to stop. Look for a quit sorin who wants to stop smoking as well. You can help each other get through the rough times. A = Anticipate and plan for the challenges you'll face while quitting. Most people who begin smoking again do so within the first 3 months. You can help yourself make it through by preparing ahead for common challenges, such as nicotine withdrawal and cigarette cravings. R = Remove cigarettes and other tobacco products from your home, car, and work. Throw away all your cigarettes (no emergency pack!), lighters, ashtrays, and matches. Wash your clothes and freshen up anything that smells like smoke. Shampoo your car, clean your drapes and carpet, and steam your furniture. T = Talk to your doctor about getting help to quit. Your doctor can prescribe medication to help with withdrawal and suggest other alternatives. If you can't see a doctor, you can get many products over the counter at your local pharmacy or grocery store, including the nicotine patch, nicotine lozenges, and nicotine gum. Resources for Quitting Smoking: <https://www.[place].gov/documents/ mdc/Quit_Tobacco_Resources_for_patients_313480_7.pdf> Supplementation: Take recommended dosages of Vitamin D and Calcium to help fortify your bones and help them to heal. See your health maintenance packet for dosages and recommended levels. DVT/VTE prophylaxis: You will be given compression stockings from the hospital. Wear these daily for the first two weeks after surgery. You may take them off at night. You may be prescribed a medication to help thin your blood. Take this as directed. If you are not prescribed this medication, early and frequent ambulation has been shown to be the best prophylaxis to deep vein thrombosis and sequelae related to this event.
[2023-01-05 08:49] VITALS: BP 119/78; PULSE 64
[2023-01-05] MEDS ORDERED: polyethylene glycoL 3350 17 GM POWD.PACK PO SCH (09:00)
[2023-01-05] MEDS: amLODIPine 5 MG TAB PO SCH (09:37)
[2023-01-05] MEDS: GABAPENTIN 300 MG CAP PO SCH (09:37)
[2023-01-05] MEDS: busPIRone HCl 5 MG TAB PO SCH (09:37)
[2023-01-05] MEDS: SENNOSIDES-DOCUSATE SODIUM 1 EACH TAB PO SCH (09:37)
[2023-01-05] MEDS: PANTOPRAZOLE 40 MG/10 ML VIAL IVP SCH (09:38)
--- NOTE | 2023-01-06 07:17 | P.OP ---
Date of Procedure: 01/02/23 Preoperative Diagnosis: 1. 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 Cervical stenosis with radiculopathy 3. UE paresthesias 4. Neck pain Postoperative Diagnosis: 1. 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 Cervical stenosis with radiculopathy 3. UE paresthesias 4. Neck pain Procedure(s) Performed: 1. C2-T1 posteriolateral instrumented fusion (59246, [id number]) 2. Instrumentation C2-T1 (31284) 3. Bilateral laminectomy, partial medial facetectomy and foraminotomy C2-C7 (68740, [id number]) Use of IONM Implants: Nancy posterior cervical system MagnatOs Autograft Anesthesia: GETA Surgeon: Jayden Zelaya Stationary Engineer Apprentice #1: Bradley Reyes (Was present and assisted with all aspects of the case) Estimated Blood Loss (ml): 150 IV fluids (ml): 1,200 Urine output (ml): 250 Pathology: none sent Condition: stable Disposition: PACU Indications for Procedure: Ms. Page is presenting for evaluation of cervical pain and right upper extremity radiculopathy. It was my pleasure to have seen and examined Ms. Page. In our visit today we have had a chance to go over subjective complaints, physical examination findings and treatments including the natural course history without intervention and various interventional options. The patients imaging demonstrates: XRay 5 views taken on 02/21/22 at [facility] Cervical Spine: Images reviewed in the office and demonstrate post surgical changes s/p C4-7 ACDF with hardware in good position with reasonable space and fusion noted. Straight cervical spine noted with minimal lordosis however. Ther is ASD of C3- 4 noted with disc height loss, anterior listhesis C3-4 Grade I as well as spondylosis. No fracture. C0-1 and C1-2 stable through motion. No lesions noted. CT scan from11/04/2021 at [facility] of Cervical Spine: This is reviewed and demonstrates that fusion is more limited than plain films show. there is minimal fusion noted with no evidence of hardware loosening. There is poor posterior decompression noted with posterior disc osteophyte complexes still in place. There is flat cervical spine with minimal lordosis. There is ASD of C3-4 with disc height loss, degeneration, osteophytes, sclerosis and facet arthrosis noted. There is bony stenosis noted as well from C3-7. There is no instability of C0-1 or C1-2 noted at this time. No lesions. No fractures. MRI without contrast from 04/04/2022 at [facility] of the Lumbar Spine demonstrates: Metal artifact present due to previous ACDF. There is residual stenosis noted C3-7 with mild central and b/l foraminal stenosis. There is severe facet arthrosis noted with likely incomplete fusion of C4-5 and C6-7. There is good fusion noted C5-6. There is adjacent segment disease noted C3-4 with disc collapse, height collapse and osteophytic changes. There are no fractures or lesions noted. C0-1 and C1-2 appear stable. There is grade I listhesis of C7 on T1 noted. On physical exam, Ms. Page demonstrates severely restricted cervical ROM due to pain that is impacting her ability to complete functional examination. Patient does also demonstrate right upper extremity radiculopathy with weakness among all major muscle groups. The patient does also demonstrate bilateral C3-C4 dermatomal deficits. Overall her functionality has continued to decline since the time of the last appointment and is very debilitated. I have explained to the patient that as their condition progresses it will cause further neurological deficits and eventual paralysis. Based on the patients samaria ging, physical exam, and the rapid progression and disabling nature of their symptoms, at this time I recommend surgery in the form or a: v. I discussed the risk and benefits of this procedure at length with Ms. Page. The patient agreed to considered pursuing the procedure abovementioned. Prior to surgery, she should follow up with her PCP (Cardio, ID, IM etc) for clearance. Questions were invited and answered, and the patient wishes to proceed as outlined below. Currently, I am recommendin.cervical(C2-T2) Decompression and Fusion Description of Procedure: C2-T1 Decompression and Fusion The patient was seen and examined in the preoperative area. All preoperative protocols were followed. Informed consent was obtained risks and benefits of the procedure were discussed at length. Risks including bleeding infection damage to the surrounding tissue and risk of reoperation were discussed with the patient. Risk of anesthesia up to and including was a discussed with the patient. These are outlined in the risk review. They were willing to accept these risks and all of the risks of surgery. The patient was given a weight- based dose of antibiotics in the form of 2 g Ancef. The patient was seen and evaluated by the anesthesia team who deemed them fit for surgery. The site was marked, the patient was willing to proceed with the procedure. The patient was transferred to the operative suite by the Department of anesthesia. They were then drifted off to sleep by the department anesthesia and GETA was performed. The patient tolerated this well. pre-positioning motors were obtained.Sauer in place from the floor. Once confirmation of lines and ventilation Minor head clamp was placed on the patient and secured and the patient was transferred to a [prone Guru table very carefully] with the Minor hogshead hand the head was secured and placed into an optimal position x- ray confirmed this position. Post-positioning motors remained stable. All bony prominences including wrists, elbows, axilla, chest, hips, and thighs, and feet were padded very well. Special attention was paid to the genitalia and these were padded accordingly. SCDs were placed on bilateral lower extremities and were connected. Arms were well padded and placed tucked at his side thumbs down. Shoulders were gently taped down to the table.. Once in position, again we confirmed good ventilation capabilities and that lines were running appropriately. The patient's posterior cervical spine was then exposed. 1010s were placed outlining the incision site. Standard alcohol was used to clean the incision site and allowed to dry. C-arm was used to biomark the patient and confirm level for incision which was marked with a skin marker. Operative briefing was performed with all teams and everyone in agreement to proceed. The patient was then prepped and draped in a normal sterile fashion. Timeout was then performed and all parties were in agreement with the procedure to be performed. Midline skin incision made over the previously biomarked area and dissection taken down midline to the SP of C2-T1. Subperiosteal dissection taken out over the lamina and lateral masses of C2-C7 and TVP of T1. Once exposure complete, wound was irrigated and c arm brought in for imaging. A penfield 4 was used to bluntly dissect the medial border of C2 pedicle and placed for guidance. C arm used and savi hole made for starting point. C2 pedicle was then drilled in 2mm increments to 20 mm using a ball tip feeler in between each drill session to make sure within the 4 fajardo with a good bottom. once this was accomplished a screw was selected and placed under lateral fluoroscopic guidance. Screw had good purchase. This was then repeated on the contralateral side. AP confirmed good placement of both screws. We then proceeded to the T1 screws bilaterally savi was used to remove the facet joint of C7 and to create a starting point for T1. Pedicle finder was then passed into T1 and imaging taken to confirm placement this was then removed and a tap placed ball-tipped probe was then placed and 4 fajardo of pedicle fell with good bottom. Screw was then measured and placed into T1. This is repeated on the contralateral side. The wound was then irrigated. Lateral mass screws were then drilled to 14 mm and placed at each level. Each had a good bite. Rods were then sized and selected and cut to length. They were bent accordingly and lordosis. There is secured into C2 bilaterally and then sequentially her diet reduced into T1. All set screws were placed and were then final tightened and the position. Laminectomy was then performed using Ronjair followed by savi bilateral laminotomies and laminectomy was performed using high-speed bur Kerrison Ronjair and up-biting curette. Motors were run before and after decompression and they remain stable. Good pulsations of the cord were noted after decompression. The wound was then copiously irrigated with 3 L of Ancef irrigation followed by 3 L of gentamicin irrigation followed by 3 L of normal sterile saline. Facet joints were drilled at each level to allow for fusion Surgicel was placed over the dura. MagnetOs were placed in the posterior lateral gutters along with Keiry and DBM. This was impacted into position for fusion. 2 g of powdered bank was not placed deep within the wound and a deep drain was placed. A cross-link was placed and final tightened. We then proceeded with layered closure first in the deep fascia with #1 PDS then in the middle fascia with 0 Vicryl superficial fascia was closed with 2-0 Vicryl and skin closed with skin bertin. The wound edges approximated very well. The wound was then cleaned and dressed sterilely with an operative foam dressing 4 x 4 and Tegaderm. The drain had good suction. The patient was placed in a hard cervical collar. The patient was transferred back to their hospital bed atraumatically. Minor head clamp was removed and pin sites were clear. [Drain continued to hold suction and were in good position]. Patient was then awakened and extubated by the department of anesthesia having tolerated the procedure very well with no complications. They were transferred to the postoperative care unit in stable condition.
== END 2023-01-05 14:47 | disposition home or self-care (01) | DRG 472 ==
LOC: 2ORMAIN 11:29 → 4SSUR 18:16
PROVIDERS: ADMIT Orthopaedic Surgery; ATTEND Orthopaedic Surgery
PROC: 0RG20AJ Fusion of 2 or more Cervical Vertebral Joints with Interbody Fusion Device, Posterior Approach, Anterior Column, Open Approach (ICD-10-PCS; 2023-01-02)
PROC: 01N10ZZ Release Cervical Nerve, Open Approach (ICD-10-PCS; 2023-01-02)
PROC: 01N80ZZ Release Thoracic Nerve, Open Approach (ICD-10-PCS; 2023-01-02)
PROC: 4A11X4G Monitoring of Peripheral Nervous Electrical Activity, Intraoperative, External Approach (ICD-10-PCS; 2023-01-02)
PROC: 8E09XBG Computer Assisted Procedure of Head and Neck Region, With Computerized Tomography (ICD-10-PCS; 2023-01-02)
PROC: 0RG40AJ Fusion of Cervicothoracic Vertebral Joint with Interbody Fusion Device, Posterior Approach, Anterior Column, Open Approach (ICD-10-PCS; principal; 2023-01-02 13:15)
DX: M48.02 Spinal stenosis, cervical region (principal); M96.0 Pseudarthrosis after fusion or arthrodesis; M25.511 Pain in right shoulder; R53.1 Weakness; F41.9 Anxiety disorder, unspecified; K21.9 Gastro-esophageal reflux disease without esophagitis; Z98.1 Arthrodesis status; I10 Essential (primary) hypertension; E78.5 Hyperlipidemia, unspecified; M25.78 Osteophyte, vertebrae; Z79.899 Other long term (current) drug therapy; Z68.29 Body mass index [BMI] 29.0-29.9, adult; M47.22 Other spondylosis with radiculopathy, cervical region; Z87.891 Personal history of nicotine dependence; Z90.710 Acquired absence of both cervix and uterus; Z90.49 Acquired absence of other specified parts of digestive tract; Z87.19 Personal history of other diseases of the digestive system; Z88.2 Allergy status to sulfonamides
CPT/HCPCS: 72040; 72125; 80048; 80053; 85025; 86850; 86900; 86901; 93005; 94760

== ENCOUNTER 2025-05-16 15:44 | Emergency (ER) | payer BC, MEDICARE ==
--- NOTE | 2025-05-16 16:29 | ED ---
Abdominal Pain HPI - General Chief Complaint: Abdominal Pain Stated Complaint: Abd Pain Time Seen by Provider: 05/16/25 16:18 Source: patient, RN notes reviewed, old records reviewed Mode of arrival: ambulatory Limitations: no limitations - History of Present Illness Initial Comments: This is a 69 female for evaluation abdominal pain severe and persistent abdominal pain with long history of abdominal surgery bowel resection. Patient is unable to pass gas with severe nausea and vomiting MD Complaint: abdominal pain -: days(s) Location: diffuse, periumbilical, epigastric, suprapubic Radiation: epigastric, suprapubic Migration to: epigastric, suprapubic Severity: severe Severity scale (1-10): 10 Quality: sharp Consistency: constant Improves With: nothing Worsens With: nothing Associated Symptoms: nausea, vomiting Treatments Prior to Arrival: other - Related Data Home Medications Medication Instructions Recorded Confirmed Naproxen 500 mg PO HS 01/02/20 01/02/23 Sertraline [Zoloft] 100 mg PO HS 01/02/20 01/02/23 Zolpidem [Ambien] 10 mg PO HS PRN 01/02/20 01/02/23 Gabapentin [Neurontin] 600 mg PO TID 05/24/20 01/02/23 busPIRone HCL [Buspirone HCl] 5 mg PO AC-LUNCH 11/13/22 01/02/23 methocarbamoL [Methocarbamol] 500 mg PO BID 11/13/22 01/02/23 HYDROcodone/APAP 10-325MG [[place] 1 tab PO TID PRN 12/30/22 01/02/23 10-325] Previous Rx's Medication Instructions Recorded Cyclobenzaprine [Flexeril] 5 mg PO TID PRN #60 tablet 01/05/23 Sennosides/Docusate Sodium [Senna 1 each PO DAILY PRN #20 capsule 01/05/23 Plus 8.6-50 mg Softgel] cefaDROXiL [Duricef] 500 mg PO Q12HR 5 Days #10 cap 01/05/23 Allergies Allergy/AdvReac Type Severity Reaction Status Date / Time Sulfa (Sulfonamide Allergy Rash/Hives Verified 01/02/23 12:31 Antibiotics) Review of Systems ROS Statement: Those systems with pertinent positive or pertinent negative responses have been documented in the HPI. ROS Other: All systems not noted in ROS Statement are negative. Past Medical History Past Medical History: Hyperlipidemia, Hypertension, Osteoarthritis (OA) Additional Past Medical History / Comment(s): Arthitis , History of Any Multi-Drug Resistant Organisms: None Reported Past Surgical History: Bowel Resection, Cholecystectomy, Hysterectomy, Orthopedic Surgery Additional Past Surgical History / Comment(s): states had "18 inches of colon removed r/t twisted bowel" rt ankle plate and screws, rt foot screw, anterior d/f c4/5/6/7 on 05/30/20/ c4-7 neck fusion Past Anesthesia/Blood Transfusion Reactions: No Reported Reaction Additional Past Anesthesia/Blood Transfusion Reaction / Comment(s): PT STATES "I WAS TOLD i QUIT BREASTHING DURING CHOLECYSTECTOMY" ABOUT 10 YEARS AGO. HAS HAD ANESTHESIA SINCE WITH NO PROBLEMS Past Psychological History: No Psychological Hx Reported Smoking Status: Never smoker - Past Family History Mother Family Medical History: No Reported History Additional Family Medical History / Comment(s): still living in good health General Exam Limitations: no limitations General appearance: alert, in no apparent distress Head exam: Present: atraumatic, normocephalic, normal inspection Eye exam: Present: normal appearance, PERRL, EOMI. Absent: scleral icterus, conjunctival injection, periorbital swelling ENT exam: Present: normal exam, mucous membranes moist Neck exam: Present: normal inspection. Absent: tenderness, meningismus, lymphadenopathy Respiratory exam: Present: normal lung sounds bilaterally. Absent: respiratory distress, wheezes, rales, rhonchi, stridor Cardiovascular Exam: Present: regular rate, normal rhythm, normal heart sounds. Absent: systolic murmur, diastolic murmur, rubs, gallop, clicks GI/Abdominal exam: Present: soft, normal bowel sounds. Absent: distended, tenderness, guarding, rebound, rigid Extremities exam: Present: normal inspection, full ROM, normal capillary refill. Absent: tenderness, pedal edema, joint swelling, calf tenderness Back exam: Present: normal inspection Neurological exam: Present: alert, oriented X3, CN II-XII intact Psychiatric exam: Present: normal affect, normal mood Skin exam: Present: warm, dry, intact, normal color. Absent: rash Course Vital Signs 05/16/25 05/16/25 16:09 17:45 Temperature 98.8 F Pulse Rate 75 61 Respiratory 20 15 Rate Blood Pressure 124/77 118/81 O2 Sat by Pulse 98 98 Oximetry - Reevaluation(s) Reevaluation #1: 05/16/25 18:18 Medical record is reviewed Reevaluation #4: Was pt. sent in by a medical professional or institution ([facility] Swartz, [facility], urgent care, hospital, or [place] [facility] facility...) When possible be specific @ -no Did you speak to anyone other than the patient for history (EMS, parent, family, police, friend...)? What history was obtained from this source @ -no Did you review nursing and triage notes (agree or disagree)? Why? @ -agree Are old charts reviewed (outside hosp., previous admission, EMS record, old EKG, old radiological studies, urgent care reports/EKG's, [place] [facility] records)? Report findings @ -yes Differential Diagnosis (chest pain, altered mental status, abdominal pain women, abdominal pain men, vaginal bleeding, weakness, fever, dyspnea, syncope, headache, dizziness, GI bleed, back pain, seizure, CVA, palpatations, mental health, musculoskeletal)? @ -prior EKG interpreted by me (3pts min.). @ -yes X-rays interpreted by me (1pt min.). @ -yes negative for acute disease CT interpreted by me (1pt min.). @ -no U/S interpreted by me (1pt. min.). @ -no What testing was considered but not performed or refused? (CT, X-rays, U/S, labs)? Why? @ -none What meds were considered but not given or refused? Why? @ -none Did you discuss the management of the patient with other professionals (professionals i.e. EM[facility] Swartz, [facility], lab, RT, psych nurse, nursing home social worker, manager automotive, teacher, gunnery/ordnance officer, rn field case manager)? Give summary @ -no Was smoking cessation discussed for >3mins.? @ -no Was critical care preformed (if so, how long)? @ -no Were there social determinants of health that impacted care today? How? (Homelessness, low income, unemployed, alcoholism, drug addiction, transportation, low edu. Level, literacy, decrease access to med. care, intermediate, rehab)? @ -none Was there de-escalation of care discussed even if they declined (Discuss DNR or withdrawal of care, Hospice)? DNR status @ -no What co-morbidities impacted this encounter? (DM, HTN, Smoking, COPD, CAD, Cancer, CVA, ARF, Chemo, Hep., AIDS, mental health diagnosis, sleep apnea, morbid obesity)? @ -none Was patient admitted / discharged? Hospital course, mention meds given and route, prescriptions, significant lab abnormalities, going to OR and other pertinent info. @ - Undiagnosed new problem with uncertain prognosis? @ -no Drug Therapy requiring intensive monitoring for toxicity (Heparin, Nitro, Insulin, Cardizem)? @ -no Were any procedures done? @ -no Diagnosis/symptom? @ - Acute, or Chronic, or Acute on Chronic? @ -Acute Uncomplicated (without systemic symptoms) or Complicated (systemic symptoms)? @ -Complicated Side effects of treatment? @ -no Exacerbation, Progression, or Severe Exacerbation? @ -exacerbation Poses a threat to life or bodily function? How? (Chest pain, USA, PR, pneumonia, PE, COPD, DKA, ARF, appy, cholecystitis, CVA, Diverticulitis, Homicidal, Suicidal, threat to staff... and all critical care pts) @ -yes Reevaluation #5: Differential Abdominal Pain Women: Appendicitis, Cholecystitis, diverticulosis, ischemic bowel, pancreatitis, hepatitis, UTI, gastroenteritis, AAA, incarcerated hernia, bowel obstruction, constipation, inflammatory bowel, hepatitis, peptic ulcer disease, splenic infarction, perforated viscus, vulvitis, ovarian torsion, PID, kidney stone, placenta abruption, this is not meant to be an all-inclusive list Medical Decision Making - Lab Data Result diagrams: 05/16/25 16:45 05/16/25 16:45 Lab Results 05/16/25 05/16/25 05/16/25 Range/Units 16:45 16:45 16:45 WBC 11.94 H (4.50-10.00) 10*3/uL RBC 3.78 L (4.10-5.20) 10*6/uL Hgb 12.2 (12.0-15.0) g/dL Hct 35.1 L (37.2-46.3) % MCV 92.9 (80.0-97.0) fL MCH 32.3 H (27.0-32.0) pg MCHC 34.8 (32.0-37.0) g/dL Plt Count 281 (140-440) 10*3/uL MPV 10.6 (9.5-12.2) fL Immature Gran % (Auto) 0.3 % Neutrophils % 70.3 % Lymphocytes % 20.1 % Monocytes % 6.8 % Eosinophils % 2.0 % Basophils % 0.5 % Immature Gran # 0.03 (0.00-0.04) 10*3/uL Neutrophils # 8.40 H (1.80-7.70) 10*3/uL Lymphocytes # 2.40 (0.90-5.00) 10*3/uL Monocytes # 0.81 (0.20-1.00) 10*3/uL Eosinophils # 0.24 (0.04-0.35) 10*3/uL Basophils # 0.06 (0.00-0.10) 10*3/uL PT 10.6 (10.0-12.5) sec INR 0.9 (<1.2) APTT 23.9 (22.0-30.0) sec Sodium 138 (137-145) mmol/L Potassium 3.9 (3.5-5.1) mmol/L Chloride 105 (98-107) mmol/L Carbon Dioxide 27 (22-30) mmol/L Anion Gap 6 mmol/L BUN 20 H (7-17) mg/dL Creatinine 0.74 (0.52-1.04) mg/dL Est GFR (CKD-EPI)AfAm >90 (>60 ml/min/1.73 sqM) Est GFR (CKD-EPI)NonAf 84 (>60 ml/min/1.73 sqM) Glucose 101 H (74-99) mg/dL Plasma Lactic Acid [place] (0.7-2.0) mmol/L Calcium 9.0 (8.4-10.2) mg/dL Total Bilirubin 0.5 (0.2-1.3) mg/dL AST 22 (14-36) U/L ALT 14 (4-34) U/L Alkaline Phosphatase 52 (38-126) U/L Total Protein 6.0 L (6.3-8.2) g/dL Albumin 3.7 (3.5-5.0) g/dL Amylase 48 (30-110) U/L Lipase 107 (23-300) U/L Urine Color Urine Appearance (Clear) Urine pH (5.0-8.0) Ur Specific [place] (1.001-1.035) Urine Protein (Negative) Urine Glucose (UA) (Negative) Urine Ketones (Negative) Urine Blood (Negative) Urine Nitrite (Negative) Urine Bilirubin (Negative) Urine Urobilinogen (<2.0) mg/dL Ur Leukocyte Esterase (Negative) Urine RBC (0-5) /hpf Urine WBC (0-5) /hpf Ur Squamous Epith Cells (0-4) /hpf Urine Bacteria (None) /hpf Hyaline Casts (0-2) /lpf Urine Mucus (None) /hpf 05/16/25 05/16/25 Range/Units 16:45 16:51 WBC (4.50-10.00) 10*3/uL RBC (4.10-5.20) 10*6/uL Hgb (12.0-15.0) g/dL Hct (37.2-46.3) % MCV (80.0-97.0) fL MCH (27.0-32.0) pg MCHC (32.0-37.0) g/dL Plt Count (140-440) 10*3/uL MPV (9.5-12.2) fL Immature Gran % (Auto) % Neutrophils % % Lymphocytes % % Monocytes % % Eosinophils % % Basophils % % Immature Gran # (0.00-0.04) 10*3/uL Neutrophils # (1.80-7.70) 10*3/uL Lymphocytes # (0.90-5.00) 10*3/uL Monocytes # (0.20-1.00) 10*3/uL Eosinophils # (0.04-0.35) 10*3/uL Basophils # (0.00-0.10) 10*3/uL PT (10.0-12.5) sec INR (<1.2) APTT (22.0-30.0) sec Sodium (137-145) mmol/L Potassium (3.5-5.1) mmol/L Chloride (98-107) mmol/L Carbon Dioxide (22-30) mmol/L Anion Gap mmol/L BUN (7-17) mg/dL Creatinine (0.52-1.04) mg/dL Est GFR (CKD-EPI)AfAm (>60 ml/min/1.73 sqM) Est GFR (CKD-EPI)NonAf (>60 ml/min/1.73 sqM) Glucose (74-99) mg/dL Plasma Lactic Acid [place] 1.2 (0.7-2.0) mmol/L Calcium (8.4-10.2) mg/dL Total Bilirubin (0.2-1.3) mg/dL AST (14-36) U/L ALT (4-34) U/L Alkaline Phosphatase (38-126) U/L Total Protein (6.3-8.2) g/dL Albumin (3.5-5.0) g/dL Amylase (30-110) U/L Lipase (23-300) U/L Urine Color Yellow Urine Appearance Clear (Clear) Urine pH 6.0 (5.0-8.0) Ur Specific [place] 1.023 (1.001-1.035) Urine Protein Negative (Negative) Urine Glucose (UA) Negative (Negative) Urine Ketones Negative (Negative) Urine Blood Small H (Negative) Urine Nitrite Positive H (Negative) Urine Bilirubin Negative (Negative) Urine Urobilinogen <2.0 (<2.0) mg/dL Ur Leukocyte Esterase Moderate H (Negative) Urine RBC 5 (0-5) /hpf Urine WBC 17 H (0-5) /hpf Ur Squamous Epith Cells <1 (0-4) /hpf Urine Bacteria Many H (None) /hpf Hyaline Casts 1 (0-2) /lpf Urine Mucus Rare H (None) /hpf Disposition Clinical Impression: Abdominal pain, Abdominal colic, Small bowel obstruction Disposition: HOME SELF-CARE Condition: Fair Is patient prescribed a controlled substance at d/c from ED?: No Referrals: Sai Garvey MD [Primary Care Provider] - 1-2 days Time of Disposition: 19:00
[2025-05-16 16:51] LABS: Basophils # (A) 0.06 10*3/uL (0.00-0.10); Basophils % (A) 0.5 %; Eosinophils # (A) 0.24 10*3/uL (0.04-0.35); Eosinophils % (A) 2.0 %; HCT 35.1 % (37.2-46.3); HGB 12.2 g/dL (12.0-15.0); Lymphocytes # (A) 2.40 10*3/uL (0.90-5.00); Lymphocytes % (A) 20.1 %; MCH 32.3 pg (27.0-32.0); MCHC 34.8 g/dL (32.0-37.0); MCV 92.9 fL (80.0-97.0); Monocytes # (A) 0.81 10*3/uL (0.20-1.00); Monocytes % (A) 6.8 %; Neutrophils # (A) 8.40 10*3/uL (1.80-7.70); Neutrophils % (A) 70.3 %; Platelet Count 281 10*3/uL (140-440); RBC 3.78 10*6/uL (4.10-5.20); RDW 13.1 % (11.5-14.5); WBC 11.94 10*3/uL (4.50-10.00)
[2025-05-16 17:01] LABS: Bacteria,Urine Many /hpf; Bilirubin,Urine Negative (Negative); Blood,Urine Small (Negative); Color,Urine Yellow; Glucose,Urine (UA) Negative (Negative); Hyaline Casts,Urine 1 /lpf (0-2); Ketones,Urine Negative (Negative); Leukocyte Esterase,Urine Moderate (Negative); Mucus,Urine Rare /hpf; Nitrite,Urine Positive (Negative); PH, Urine 6.0 (5.0-8.0); Protein,Urine Negative (Negative); RBC,Urine 5 /hpf (0-5); Specific Gravity,Urine 1.023 (1.001-1.035); Squamous Epithelial Cell,Urine <1 /hpf (0-4); Urobilinogen,Urine <2.0 mg/dL (<2.0); WBC,Urine 17 /hpf (0-5)
[2025-05-16 17:17] LABS: ALT 14 U/L (4-34); AST 22 U/L (14-36); African American GFR (CKD) >90 (>60 ml/min/1.73 sqM); Albumin 3.7 g/dL (3.5-5.0); Alkaline Phosphatase 52 U/L (38-126); Amylase 48 U/L (30-110); Anion Gap 6 mmol/L; Blood Urea Nitrogen 20 mg/dL (7-17); Calcium 9.0 mg/dL (8.4-10.2); Carbon Dioxide 27 mmol/L (22-30); Chloride 105 mmol/L (98-107); Glucose 101 mg/dL (74-99); Lipase 107 U/L (23-300); Non-African American GFR(CKD) 84 (>60 ml/min/1.73 sqM); Potassium 3.9 mmol/L (3.5-5.1); Sodium 138 mmol/L (137-145); Total Protein 6.0 g/dL (6.3-8.2)
[2025-05-16 17:22] LABS: INR 0.9 (<1.2); Partial Thromboplastin Time 23.9 sec (22.0-30.0); Prothrombin Time 10.6 sec (10.0-12.5)
[2025-05-16] MEDS: PANTOPRAZOLE 40 MG/10 ML VIAL IVP STA (17:46)
[2025-05-16] MEDS: ONDANSETRON 4 MG/2 ML VIAL IVP STA (17:48)
[2025-05-16] MEDS: HYDROmorphone 1 MG/ML 1 ML SYRINGE IVP STA (17:49)
--- NOTE | 2025-05-16 18:51 | CT ---
EXAMINATION TYPE: CT abdomen pelvis w con DATE OF EXAM: 05/16/2025 6:23 PM COMPARISON: 08/21/2019 CLINICAL INDICATION: Female, 69 years old with history of abdominal pain; abdominal pain, hernia TECHNIQUE: Axial CT abdomen pelvis w con;Sagittal and coronal reformats were created on a separate w orkstation. Contrast used:100 mL of Isovue 300 with IV Contrast, (none if empty) Oral contrast used: without Oral Contrast (none if empty) CT DLP: 648.5 mGycm, Automated exposure control for dose reduction was used. FINDINGS: LOWER CHEST: Unremarkable ABDOMEN LIVER: Unremarkable GALLBLADDER AND BILE DUCTS: The gallbladder is surgically absent. PANCREAS: Unremarkable. SPLEEN: Unremarkable. ADRENAL GLANDS: Unremarkable. KIDNEYS AND URETERS: No evidence of hydronephrosis or obstructing renal calculus. The ureters are unr emarkable. Simple appearing renal cysts. No follow-up recommended. PELVIS BLADDER: No evidence for wall thickening or mass given limitations of exam. REPRODUCTIVE: Unremarkable. ABDOMEN & PELVIS STOMACH AND BOWEL: No evidence of bowel obstruction. There is a Post surgical changes to the small mickey wel with partial obstruction series 202 image 29 at the anastomotic site with small bowel feces just proximal and around this site of anastomosis. The remainder of the small bowel is relatively nondiste nded. There is large amount of stool in the colon. PERITONEUM/RETROPERITONEUM: No evidence of pneumoperitoneum or free fluid. VASCULATURE: No evidence of aortic aneurysm. MUSCULOSKELETAL: No acute osseous abnormalities LYMPH NODES: No gross evidence for lymphadenopathy. SOFT TISSUE/ABDOMINAL WALL: Fat and fluid containing umbilical hernia. IMPRESSION: Post surgical changes to the small bowel with partial obstruction series 202 image 29 at the anastomo tic site with small bowel feces just proximal to focal narrowing. . Some small bowel feces are seen j ust proximal to the narrowing also. The colon is relatively full with stool. Surgical consultation re commended. Therapeutic Gastrografin small bowel follow-through may be of benefit to clear this obstru ction. [facility], , 05/16/2025 6:49 PM
[2025-05-16] MEDS ORDERED: NALOXONE 0.4 MG/ML 1 ML VIAL IV PRN (19:18)
[2025-05-16] MEDS ORDERED: HYDROmorphone 1 MG/ML 1 ML SYRINGE IVP PRN (19:18)
[2025-05-16] MEDS ORDERED: ONDANSETRON 4 MG/2 ML VIAL IVP PRN (19:18)
[2025-05-16] MEDS ORDERED: DEXTROSE 5%-0.45% NACL 1,000 ML IV SCH (19:30)
[2025-05-16 19:47] VITALS: BP 123/76; PULSE 69; RESP 18; TEMP 98.3
== END 2025-05-16 19:50 | disposition home or self-care (01) ==
LOC: EC 15:44
DX: K56.699 Other intestinal obstruction unspecified as to partial versus complete obstruction (principal); Z88.2 Allergy status to sulfonamides
CPT/HCPCS: 36415; 80053; 82150; 83605; 83690; 85025; 85610; 85730; 81001; 87086; 74177; 99284; 96374; 96375; J2405; J1171; Q9967; J2470